=== PATIENT | female | born 1935 | race Caucasian/White ===

== ENCOUNTER 2017-12-02 18:08 | Inpatient (IN) | payer MEDICARE, MEDICAID ==
[2017-12-02] MEDS: Sodium Chloride 0.9% 1,000 ML IV ONE ×2 (18:15→19:15)
--- NOTE | 2017-12-02 18:17 | C.PDOC ---
History Of Present Illness <Jaymie Yeager - Last Filed: 12/02/17 18:52> <JeanaselvinFrantz Munguia - Last Filed: 12/02/17 20:01> LTD DUE TO CLINICAL COND 82-YEAR-OLD FEMALE, PMHX HYPERTENSION, BIBA. PATIENT HAD ONE EPISODE OF NON- BLOODY/NON-BILIOUS VOMITING, INITIAL IMPRESSION SX DUE TO ?BAD FOOD. PER EMS PT WITH WITNESSED SYNCOPAL EPISODE EN ROUTE, VS: SYSTOLIC 110, RATE IN 50s W PROLONGED PAUSES. EKG 81BPM POSS THIRD DEGREE BLOCK (Toy,Jaymie) History Per: EMS, Family History/Exam Limitations: clinical condition Current Symptoms Are (Timing): Still Present <Jaymie Yeager - Last Filed: 12/02/17 18:52> <Frantz Thomas Nilda - Last Filed: 12/02/17 20:01> Time Seen by Provider: 12/02/17 18:12 Past Medical History Reviewed: Historical Data, Nursing Documentation, Vital Signs Family History: States: No Known Family Hx <Jaymie Yeager - Last Filed: 12/02/17 18:52> Vital Signs: Last Vital Signs Temp 97.9 F 12/02/17 18:24 Pulse 47 L 12/02/17 19:10 Resp 17 12/02/17 19:10 BP 100/50 L 12/02/17 19:10 Pulse Ox 98 12/02/17 19:10 Review Of Systems Review Of Systems: ROS cannot be obtained secondary to pt's inabilty to answer questions. 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 DROPPED BEATS) Respiratory: Normal Breath Sounds, No Decreased Breath Sounds, No Accessory Muscle Use Gastrointestinal/Abdominal: Soft, No Tenderness Extremity: Normal ROM, No Deformity, No Swelling Neurological/Psych: Oriented x3, Normal Speech <Jaymie Yeager - Last Filed: 12/02/17 18:52> ED Course And Treatment - Laboratory Results Result Diagrams: 12/02/17 18:37 ECG: Interpreted By Me Interpretation Of ECG: ?3 AVB Rate From EC O2 Sat by Pulse Oximetry: 100 Pulse Ox Interpretation: Normal <Jaymie Yeager - Last Filed: 12/02/17 18:52> - Laboratory Results Result Diagrams: 12/02/17 18:37 12/02/17 18:37 Lab Interpretation: Abnormal Interpretation Of Abnormal: Severe hyperkalemia - Physician Consult Information Physician Contacted: Ruben Munroe Outcome Of Conversation: He evaluated pt in the ED, agrees with ED management and ICU admission. <MarthaFrantz E - Last Filed: 12/02/17 20:01> Progress - Data Reviewed Data Reviewed: Lab, Diagnostic imaging, EKG, Old records - Critical Care Citical Care: Excluding Proc Time Critical Care Time: 90 minutes - Continuity of Care Discussed patient case with:: Patient, Family-HIPPA compliant Discussed pt. case with pmo consultant/specialty: Cardiology <Jaymie Yeager - Last Filed: 12/02/17 18:52> - Interventions Interventions:: Observation, Intravenous fluid - Medications Administered Oral: Other (Kayexelate) Inhaled nebulized: Beta-2 agonist Intravenous: Diuretic, Other (Insulin, D50, Calcium Gluconate, Sodium Bicarb.) - Patient Status Patient status: Partially improved, Critical - Critical Care Citical Care: Excluding Proc Time Critical Care Time: 105 minutes - Continuity of Care Discussed patient case with:: Patient, Family-HIPPA compliant, ED Nurse, On- call PMD-pt unassigned Discussed pt. case with pmo consultant/specialty: Cardiology - Patient Plan Patient Plan: Admission, ICU <MarthaMercedmiko E - Last Filed: 12/02/17 20:01> - Re-Evaluation Re-evaluation Note: 18:08 ATROPINE GIVEN W MOD IMPROVEMENT 12/02/17 18:17 D/W DR MUNROE AWARE OF ER FINDINGS. WILL CONSULT, RECOMMENDS ICU EVAL FOR POSSIBLE TRANSVENOUS PPM EVAL 12/02/17 18:23 PT STATES TAKES METOPROLOL 50 MG DAILY, DENIES POSSIBLE OVERDOSE. WILL DOSE GLUCAGON 12/02/17 18:30 VOMITING, NARD. WILL DOSE REGLAN 12/02/17 18:44 PS FEELS BETTER. NV RESOLVED. DENIES CP, DIZZY. HR 52 ON MONITOR. NARD. 12/02/17 18:52 REPEAT EKG JUNCTIONAL @ 48 APPEARS COMFORTABLE HR 48 SBP 125 (Jaymie Yeager) Disposition - Disposition Disposition Time: 19:00 <Jaymie Yeager - Last Filed: 12/02/17 18:52> Discussed With : Logan Campo Comment: He accepted pt on hospitalist service. Doctor Will See Patient In The: Hospital Counseled Patient/Family Regarding: Studies Performed, Diagnosis - Disposition Disposition Time: 19:58 <Frantz Thomas - Last Filed: 12/02/17 20:01> - Disposition Disposition: HOSPITALIZED Condition: CRITICAL - Clinical Impression Clinical Impression: Heart block, Bradycardia, Syncope, Hyperkalemia, Acute electrocardiography changes Physician Patient Turnover Patient Signed Over To: Frantz Thomas Handoff Comments: FU LABS, DISPO <Jaymie Yeager - Last Filed: 12/02/17 18:52>
[2017-12-02] MEDS ORDERED: Sodium Chloride 0.9% 1,000 ML IV ONE (18:18)
[2017-12-02] MEDS ORDERED: Glucagon Recombinant 1 mg Inj IV STA (18:20)
[2017-12-02] MEDS ORDERED: Glucagon Recombinant 1 mg Inj ONE (18:26)
[2017-12-02 18:44] LABS: BASO # 0.1 K/uL (0.0-0.2); BASO % 0.5 % (0.0-2.0); EOS % 0.2 % (0.0-4.0); HEMOGLOBIN 10.5 g/dL (11.0-16.0); LYMPH # 1.8 K/uL (1.0-4.3); LYMPH % 17.1 % (20.0-40.0); MEAN CELL VOLUME 72.9 fL (81.0-99.0); MEAN CORPUSCULAR HEMOGLOBIN 23.2 pg (27.0-31.0); MEAN CORPUSCULAR HGB CONC 31.8 g/dL (33.0-37.0); MEAN PLATELET VOLUME 8.1 fL (7.2-11.7); MONO # 0.5 K/uL (0.0-0.8); MONO % 4.5 % (0.0-10.0); NEUT # 8.4 K/uL (1.8-7.0); NEUT % 77.7 % (50.0-75.0); RBC 4.52 Mil/uL (3.80-5.20); RED CELL DISTRIBUTION WIDTH 15.8 % (11.5-14.5); WHITE BLOOD COUNT 10.8 K/uL (4.8-10.8)
[2017-12-02 18:52] LABS: PROTHROMBIN TIME 11.2 SECONDS (9.7-12.2)
[2017-12-02 19:12] LABS: ALB/GLOB RATIO 1.2 (1.0-2.1); ALBUMIN 4.2 g/dL (3.5-5.0); ALT/SGPT 161 U/L (9-52); AST/SGOT 177 U/L (14-36); BLOOD UREA NITROGEN 22 mg/dL (7-17); GFR AFRICAN-AMERICAN > 60; GFR NON-AFRICAN AMERICAN 53
[2017-12-02] MEDS ORDERED: Albuterol 0.083% Inhal Sol (2.5 mg/3 mL) UD IH STA ×2 (19:13→19:32)
[2017-12-02] MEDS ORDERED: Calcium Gluconate 4.65 mEq/10 ml Inj IVP STA ×2 (19:14→19:28)
[2017-12-02] MEDS ORDERED: (Novolin R) Insulin Human Regular 100 units/ml vial IV STA (19:14)
[2017-12-02] MEDS ORDERED: Dextrose 50% SYRINGE Inj (50 ml) IVP STA (19:15)
[2017-12-02] MEDS ORDERED: Sod Polystyrene Sulf 15 gm/60 ml Susp PO STA (19:15)
[2017-12-02] MEDS ORDERED: Dextrose 50% VIAL Inj (50 ml) IV ONE (19:17)
[2017-12-02] MEDS ORDERED: Calcium Gluconate 4.65 mEq/10 ml Inj ONE ×2 (19:17→19:31)
[2017-12-02] MEDS ORDERED: (Novolin R) Insulin Human Regular 100 units/ml vial ONE (19:17)
[2017-12-02] MEDS ORDERED: Albuterol 0.083% Inhal Sol (2.5 mg/3 mL) UD ONE ×2 (19:17→19:32)
[2017-12-02] MEDS ORDERED: Sodium Bicarbonate (8.4%) 50 Meq Syringe IVP STA (19:19)
[2017-12-02 19:21] LABS: FREE T4 1.82 ng/dL (0.78-2.19)
[2017-12-02] MEDS ORDERED: Sodium Bicarbonate (8.4%) 50 Meq Syringe ONE (19:26)
[2017-12-02] MEDS ORDERED: Sodium Chloride 0.9% 1,000 ML IV STA (19:33)
[2017-12-02] MEDS ORDERED: Sod Polystyrene Sulf 15 gm/60 ml Susp ONE ×3 (19:42→20:27)
[2017-12-02] MEDS ORDERED: Sod Polystyrene Sulf 15 gm/60 ml Susp PO ONE (20:13)
[2017-12-02] MEDS ORDERED: Sodium Bicarbonate 8.4% 150 MEQ in Dextrose 5% In Water 1,000 ML IV SCH (20:15)
[2017-12-02 20:44] LABS: URINE BACTERIA RARE (<OCC); URINE BILIRUBIN NEGATIVE (NEGATIVE); URINE BLOOD NEGATIVE (NEGATIVE); URINE CLARITY Clear (Clear); URINE COLOR Colorless (YELLOW); URINE GLUCOSE (UA) 1+ mg/dL (Normal); URINE LEUKOCYTE ESTERASE NEG Leu/uL (Negative); URINE PROTEIN NEGATIVE (NEGATIVE); URINE UROBILINOGEN NORMAL mg/dL (0.2-1.0)
--- NOTE | 2017-12-02 21:13 | CP.PCM.HP ---
<Kathleen DumontKirit - Last Filed: 12/02/17 23:14> History of Present Illness - History of Present Illness History of Present Illness: CC: nausea, diarrhea, dizziness HPI: Patient is an 82 y/o F with PMHx of HTN, DMII, HLD who presents today for nausea, diarrhea, and dizziness. Patient was feeling fine today and then after eating lunch became nauseous and had 4 episodes of nonbloody diarrhea. Patient felt light headed with blurry vision and weak and her daughter called 911. Patient also felt like she was unsteady on her feet and needed help to get to the bathroom. Patient has not been sick recently and has had no sick contacts. In the ER patient had one episode of vomiting. In the ER patient says she is feeling much better and says the lightheadedness and nausea have resolved. Patient denies any chest pain, shortness of breath, or abdominal pain. The past few days patient has had decreased appetite, but otherwise has felt normal. Patient has had no weight changes. Patient was recently in the [facility] [place] from Nov 01- November 16 and felt fine while there. PMD: Dr. Grubbs Cardio: Dr. Morales Allergies: NKDA PMHx: HTN, DM, HLD Psurg: hysterectomy 20+ years ago, appendectomy 20+ years ago, R ankle and R arm break 5 years ago with metal placed in arenas arm last colonoscopy about 4 years ago with normal findings Famhx: Father: [facility] at unknown age Social: denies tobacco or drugs, drinks 1 small glass of wine daily (currently not drinking because she gave it up for Lent), lives alone, home health aid comes 6x a week, able to do most ADLs alone Home meds: Sodium Chloride 1 tab po QID, Vit A 1 tab po daily, Janumet Xr 50- 500mg 1 tab po BID, Omeprazole 1 tab po daily, Amlodipine/ Valsartan 5-320mg 1 po daily, Atorvastatin 1 tab po daily, Metoprolol 1 tab po daily, ASA 81mg po daily Present on Admission - Present on Admission Any Indicators Present on Admission: No History of DVT/PE: No History of Uncontrolled Diabetes: No Urinary Catheter: No Decubitus Ulcer Present: No Review of Systems - Constitutional Constitutional: Weakness. absent: Chills, Fever, Weight Loss - EENT Eyes: Blurred Vision Nose/Mouth/Throat: absent: Sore Throat - Cardiovascular Cardiovascular: absent: Chest Pain, Dyspnea, Leg Edema, Palpitations - Respiratory Respiratory: absent: Cough, Wheezing, Chest Congestion - Gastrointestinal Gastrointestinal: Bloating, Diarrhea, Nausea, Vomiting. absent: Abdominal Pain , Hematochezia, Melena - Musculoskeletal Musculoskeletal: absent: Numbness, Tingling - Integumentary Integumentary: absent: Rash - Neurological Neurological: absent: Abnormal Speech Past Patient History - Past Social History Smoking Status: Never Smoked - CARDIAC Hx Hypercholesterolemia: Yes Hx Hypertension: Yes - GASTROINTESTINAL Hx Gastroesophageal Reflux: Yes - PSYCHIATRIC Hx Substance Use: No - SURGICAL HISTORY Hx Appendectomy: Yes Hx Hysterectomy: Yes - ANESTHESIA Hx Anesthesia: Yes Hx Anesthesia Reactions: No Meds Allergies/Adverse Reactions: Allergies Allergy/AdvReac Type Severity Reaction Status Date / Time No Known Allergies Allergy Verified 12/02/17 18:18 Physical Exam - Constitutional Appears: Non-toxic, No Acute Distress - Head Exam Head Exam: ATRAUMATIC, NORMAL INSPECTION, NORMOCEPHALIC - Eye Exam Eye Exam: EOMI, Normal appearance - ENT Exam ENT Exam: Mucous Membranes Dry - Respiratory Exam Respiratory Exam: Clear to Auscultation Bilateral, NORMAL BREATHING PATTERN - Cardiovascular Exam Cardiovascular Exam: Bradycardia, REGULAR RHYTHM, +S1, +S2 - GI/Abdominal Exam GI & Abdominal Exam: Distended, Normal Bowel Sounds, Soft. absent: Tenderness - Extremities Exam Extremities exam: Positive for: normal inspection. Negative for: pedal edema, tenderness - Neurological Exam Neurological exam: Alert, Oriented x3 - Psychiatric Exam Psychiatric exam: Depressed ( 4 months ago), Normal Affect - Skin Skin Exam: Intact, Normal Color, Warm Results - Vital Signs Recent Vital Signs: Last Vital Signs Temp 97.6 F 12/02/17 20:06 Pulse 52 L 12/02/17 20:06 Resp 18 12/02/17 20:06 BP 140/48 L 12/02/17 20:06 Pulse Ox 97 12/02/17 20:06 - Labs Result Diagrams: 12/02/17 18:37 12/02/17 18:37 Labs: Laboratory Results - last 24 hr 12/02/17 12/02/17 12/02/17 18:11 18:37 18:37 WBC 10.8 RBC 4.52 Hgb 10.5 L Hct 33.0 L MCV 72.9 L MCH 23.2 L MCHC 31.8 L RDW 15.8 H Plt Count 252 MPV 8.1 Neut % (Auto) 77.7 H Lymph % (Auto) 17.1 L [place] % (Auto) 4.5 Eos % (Auto) 0.2 Baso % (Auto) 0.5 Neut # (Auto) 8.4 H Lymph # (Auto) 1.8 [place] # (Auto) 0.5 Eos # (Auto) 0.0 Baso # (Auto) 0.1 PT 11.2 INR 1.0 Sodium Potassium Chloride Carbon Dioxide Anion Gap BUN Creatinine Est GFR ( Amer) Est GFR (Non-Af Amer) POC Glucose (mg/dL) 167 H Random Glucose Calcium Total Bilirubin AST ALT Alkaline Phosphatase Troponin I NT-Pro-B Natriuret Pep Total Protein Albumin Globulin Albumin/Globulin Ratio Free T4 TSH 3rd Generation Urine Color Urine Clarity Urine pH Ur Specific [place] Urine Protein Urine Glucose (UA) Urine Ketones Urine Blood Urine Nitrate Urine Bilirubin Urine Urobilinogen Ur Leukocyte Esterase Urine WBC (Auto) Urine RBC (Auto) Urine Bacteria 12/02/17 12/02/17 12/02/17 18:37 18:37 20:28 WBC RBC Hgb Hct MCV MCH MCHC RDW Plt Count MPV Neut % (Auto) Lymph % (Auto) [place] % (Auto) Eos % (Auto) Baso % (Auto) Neut # (Auto) Lymph # (Auto) [place] # (Auto) Eos # (Auto) Baso # (Auto) PT INR Sodium 138 Potassium 8.3 H* Chloride 97 L Carbon Dioxide 31 H Anion Gap 19 BUN 22 H Creatinine 1.0 Est GFR ( Amer) > 60 Est GFR (Non-Af Amer) 53 POC Glucose (mg/dL) Random Glucose 167 H Calcium 9.0 Total Bilirubin 0.6 AST 177 H ALT 161 H Alkaline Phosphatase 89 Troponin I < 0.0120 NT-Pro-B Natriuret Pep 696 Total Protein 7.6 Albumin 4.2 Globulin 3.4 Albumin/Globulin Ratio 1.2 Free T4 1.82 TSH 3rd Generation 2.19 Urine Color Urine Clarity Urine pH Ur Specific [place] Urine Protein Urine Glucose (UA) Urine Ketones Urine Blood Urine Nitrate Urine Bilirubin Urine Urobilinogen Ur Leukocyte Esterase Urine WBC (Auto) Urine RBC (Auto) Urine Bacteria 12/02/17 20:28 WBC RBC Hgb Hct MCV MCH MCHC RDW Plt Count MPV Neut % (Auto) Lymph % (Auto) [place] % (Auto) Eos % (Auto) Baso % (Auto) Neut # (Auto) Lymph # (Auto) [place] # (Auto) Eos # (Auto) Baso # (Auto) PT INR Sodium Potassium Chloride Carbon Dioxide Anion Gap BUN Creatinine Est GFR ( Amer) Est GFR (Non-Af Amer) POC Glucose (mg/dL) Random Glucose Calcium Total Bilirubin AST ALT Alkaline Phosphatase Troponin I NT-Pro-B Natriuret Pep Total Protein Albumin Globulin Albumin/Globulin Ratio Free T4 TSH 3rd Generation Urine Color Colorless Urine Clarity Clear Urine pH 8.0 Ur Specific [place] 1.005 Urine Protein Negative Urine Glucose (UA) 1+ Urine Ketones Negative Urine Blood Negative Urine Nitrate Negative Urine Bilirubin Negative Urine Urobilinogen Normal Ur Leukocyte Esterase Neg Urine WBC (Auto) 1 Urine RBC (Auto) 3 Urine Bacteria Rare Assessment & Plan - Assessment and Plan (Free Text) Assessment: 1. Hyperkalemia -Admit to ICU -Potassium 8.3 on admission -Patient given, calcium gluconate, sodium bicarb, lasix, albuterol, kayexalate, and insulin in ED - continue IV bicarb -f/u K+ 2. Bradycardia -Cardiology consulted, Dr. Munroe, help appreciated -patient took B angus this am, Glucagon given in ED -low dose dopamine -Troponin I negative, f/u ROMIs x 2 -f/u ECHO -f/u urine culture, stool culture, fecal leuk, RPR, TSH 3. HTN -hold FILI/ARB secondary to hyperkalemia -continue to monitor 4. DMII -NPO -accuchecks q6hrs -ISS low dose 5. HLD -f/u lipid panel 6. Prophylaxis -Heparin 5000 u sc q8h <Logan Campo - Last Filed: 12/03/17 06:26> Results - Vital Signs Recent Vital Signs: Last Vital Signs Temp 98.6 F 12/03/17 04:00 Pulse 69 12/03/17 06:11 Resp 22 12/03/17 06:11 BP 141/42 L 12/03/17 06:12 Pulse Ox 97 12/03/17 06:11 - Labs Result Diagrams: 12/02/17 18:37 03/18/18 23:33 Labs: Laboratory Results - last 24 hr 12/02/17 12/02/17 12/02/17 18:11 18:37 18:37 WBC 10.8 RBC 4.52 Hgb 10.5 L Hct 33.0 L MCV 72.9 L MCH 23.2 L MCHC 31.8 L RDW 15.8 H Plt Count 252 MPV 8.1 Neut % (Auto) 77.7 H Lymph % (Auto) 17.1 L [place] % (Auto) 4.5 Eos % (Auto) 0.2 Baso % (Auto) 0.5 Neut # (Auto) 8.4 H Lymph # (Auto) 1.8 [place] # (Auto) 0.5 Eos # (Auto) 0.0 Baso # (Auto) 0.1 PT 11.2 INR 1.0 Sodium Potassium Chloride Carbon Dioxide Anion Gap BUN Creatinine Est GFR ( Amer) Est GFR (Non-Af Amer) POC Glucose (mg/dL) 167 H Random Glucose Calcium Phosphorus Magnesium Total Bilirubin AST ALT Alkaline Phosphatase Total Creatine Kinase CK-MB (Mass) Troponin I NT-Pro-B Natriuret Pep Total Protein Albumin Globulin Albumin/Globulin Ratio Free T4 TSH 3rd Generation Urine Color Urine Clarity Urine pH Ur Specific [place] Urine Protein Urine Glucose (UA) Urine Ketones Urine Blood Urine Nitrate Urine Bilirubin Urine Urobilinogen Ur Leukocyte Esterase Urine WBC (Auto) Urine RBC (Auto) Urine Bacteria Urine Opiates Screen Urine Methadone Screen Ur Barbiturates Screen Ur Phencyclidine Scrn Ur Amphetamines Screen U Benzodiazepines Scrn U Oth Cocaine Metabols U Cannabinoids Screen 12/02/17 12/02/17 12/02/17 18:37 18:37 20:28 WBC RBC Hgb Hct MCV MCH MCHC RDW Plt Count MPV Neut % (Auto) Lymph % (Auto) [place] % (Auto) Eos % (Auto) Baso % (Auto) Neut # (Auto) Lymph # (Auto) [place] # (Auto) Eos # (Auto) Baso # (Auto) PT INR Sodium 138 Potassium 8.3 H* Chloride 97 L Carbon Dioxide 31 H Anion Gap 19 BUN 22 H Creatinine 1.0 Est GFR ( Amer) > 60 Est GFR (Non-Af Amer) 53 POC Glucose (mg/dL) Random Glucose 167 H Calcium 9.0 Phosphorus Magnesium Total Bilirubin 0.6 AST 177 H ALT 161 H Alkaline Phosphatase 89 Total Creatine Kinase CK-MB (Mass) Troponin I < 0.0120 NT-Pro-B Natriuret Pep 696 Total Protein 7.6 Albumin 4.2 Globulin 3.4 Albumin/Globulin Ratio 1.2 Free T4 1.82 TSH 3rd Generation 2.19 Urine Color Urine Clarity Urine pH Ur Specific [place] Urine Protein Urine Glucose (UA) Urine Ketones Urine Blood Urine Nitrate Urine Bilirubin Urine Urobilinogen Ur Leukocyte Esterase Urine WBC (Auto) Urine RBC (Auto) Urine Bacteria Urine Opiates Screen Urine Methadone Screen Ur Barbiturates Screen Ur Phencyclidine Scrn Ur Amphetamines Screen U Benzodiazepines Scrn U Oth Cocaine Metabols U Cannabinoids Screen 12/02/17 12/02/17 12/02/17 20:28 23:19 23:33 WBC RBC Hgb Hct MCV MCH MCHC RDW Plt Count MPV Neut % (Auto) Lymph % (Auto) [place] % (Auto) Eos % (Auto) Baso % (Auto) Neut # (Auto) Lymph # (Auto) [place] # (Auto) Eos # (Auto) Baso # (Auto) PT INR Sodium Potassium Chloride Carbon Dioxide Anion Gap BUN Creatinine Est GFR ( Amer) Est GFR (Non-Af Amer) POC Glucose (mg/dL) 194 H Random Glucose Calcium Phosphorus Magnesium Total Bilirubin AST ALT Alkaline Phosphatase Total Creatine Kinase CK-MB (Mass) Troponin I NT-Pro-B Natriuret Pep Total Protein Albumin Globulin Albumin/Globulin Ratio Free T4 TSH 3rd Generation Urine Color Colorless Urine Clarity Clear Urine pH 8.0 Ur Specific [place] 1.005 Urine Protein Negative Urine Glucose (UA) 1+ Urine Ketones Negative Urine Blood Negative Urine Nitrate Negative Urine Bilirubin Negative Urine Urobilinogen Normal Ur Leukocyte Esterase Neg Urine WBC (Auto) 1 Urine RBC (Auto) 3 Urine Bacteria Rare Urine Opiates Screen Negative Urine Methadone Screen Negative Ur Barbiturates Screen Negative Ur Phencyclidine Scrn Negative Ur Amphetamines Screen Negative U Benzodiazepines Scrn Negative U Oth Cocaine Metabols Negative U Cannabinoids Screen Negative 12/02/17 12/03/17 12/03/17 23:33 00:22 05:01 WBC RBC Hgb Hct MCV MCH MCHC RDW Plt Count MPV Neut % (Auto) Lymph % (Auto) [place] % (Auto) Eos % (Auto) Baso % (Auto) Neut # (Auto) Lymph # (Auto) [place] # (Auto) Eos # (Auto) Baso # (Auto) PT INR Sodium 142 Potassium 4.5 Chloride 97 L Carbon Dioxide 34 H Anion Gap 16 BUN 21 H Creatinine 0.9 Est GFR ( Amer) > 60 Est GFR (Non-Af Amer) 60 POC Glucose (mg/dL) 254 H Random Glucose 210 H Calcium 9.5 Phosphorus 3.1 Magnesium 2.4 H Total Bilirubin 0.5 AST 335 H D ALT 295 H D Alkaline Phosphatase 87 Total Creatine Kinase 89 CK-MB (Mass) 1.02 Troponin I < 0.0120 NT-Pro-B Natriuret Pep Total Protein 7.3 Albumin 4.2 Globulin 3.1 Albumin/Globulin Ratio 1.4 Free T4 TSH 3rd Generation 1.49 Urine Color Urine Clarity Urine pH Ur Specific [place] Urine Protein Urine Glucose (UA) Urine Ketones Urine Blood Urine Nitrate Urine Bilirubin Urine Urobilinogen Ur Leukocyte Esterase Urine WBC (Auto) Urine RBC (Auto) Urine Bacteria Urine Opiates Screen Urine Methadone Screen Ur Barbiturates Screen Ur Phencyclidine Scrn Ur Amphetamines Screen U Benzodiazepines Scrn U Oth Cocaine Metabols U Cannabinoids Screen Assessment & Plan - Date & Time Date: 12/03/17 (I have seen and examined the patient. I agree with the findings and plan of care as documented by Dr. Dumont. Patient with hyperkalemia. Bradycardia. Consult to Dr. Munroe. Admit to ICU for further management. Received calcium gluconate, Lasix, Insulin, nebs, and Kayexylate in ED. Monitor for acute changes.) Time: 06:24 Attending/Attestation - Attestation I have personally seen and examined this patient.: Yes I have fully participated in the care of the patient.: Yes I have reviewed all pertinent clinical information: Yes
[2017-12-02] MEDS ORDERED: DOPamine 400mg/250ml D5W 400 MG/250 ML BAG IV PRN (21:57)
--- NOTE | 2017-12-02 22:04 | CP.PCM.CON ---
History of Present Illness - History of Present Illness History of Present Illness: 82 y/o F with PMHx of HTN, DMII, HLD presents to [facility] with c/o nausea /vomitting and diarrhea associated with dizziness. D episodes of nonbloody Diarrhea described as loose. (+)dizziness.(+) recent travel [facility] [place], no sick contact (-) CP, SOB, abdominal pain. Review of Systems - Review of Systems Review of Systems: see HPI - Gastrointestinal Gastrointestinal: Diarrhea, Nausea, Vomiting. absent: Abdominal Pain Past Patient History - Past Social History Smoking Status: Never Smoked - CARDIAC Hx Hypercholesterolemia: Yes Hx Hypertension: Yes - MUSCULOSKELETAL/RHEUMATOLOGICAL Hx Falls: Yes - GASTROINTESTINAL Hx Gastroesophageal Reflux: Yes - PSYCHIATRIC Hx Substance Use: No - SURGICAL HISTORY Hx Appendectomy: Yes Hx Hysterectomy: Yes - ANESTHESIA Hx Anesthesia: Yes Hx Anesthesia Reactions: No Meds Allergies/Adverse Reactions: Allergies Allergy/AdvReac Type Severity Reaction Status Date / Time No Known Allergies Allergy Verified 12/02/17 18:18 - Medications Medications: Current Medications Sodium Bicarbonate 75 meq/ (Sodium Chloride) 1,075 mls @ 100 mls/hr IV .[id number] [facility] Last Admin: 12/02/17 20:45 Dose: 100 mls/hr Dopamine HCl/Dextrose (Dopamine 400mg/250ml D5w) 400 mg in 250 mls @ 4.559 mls/ hr IV .Q24H PRN; Protocol; 2 MCG/KG/MIN PRN Reason: TITRATE PER MD ORDER Physical Exam - Head Exam Head Exam: ATRAUMATIC, NORMAL INSPECTION, NORMOCEPHALIC - Eye Exam Eye Exam: Normal appearance Pupil Exam: PERRL - ENT Exam ENT Exam: Mucous Membranes Moist - Neck Exam Neck exam: Positive for: Normal Inspection - Respiratory Exam Respiratory Exam: NORMAL BREATHING PATTERN - Cardiovascular Exam Cardiovascular Exam: Bradycardia, +S1, +S2 - GI/Abdominal Exam GI & Abdominal Exam: Normal Bowel Sounds, Soft. absent: Tenderness - Extremities Exam Extremities exam: Positive for: normal inspection - Neurological Exam Neurological exam: Alert, Normal Gait, Oriented x3 - Skin Skin Exam: Normal Color Results - Vital Signs Recent Vital Signs: Last Vital Signs Temp 97.6 F 12/02/17 20:06 Pulse 51 L 12/02/17 21:06 Resp 15 12/02/17 21:06 BP 120/47 L 12/02/17 21:06 Pulse Ox 96 12/02/17 21:06 - Labs Result Diagrams: 12/02/17 18:37 12/02/17 18:37 Labs: Laboratory Results - last 24 hr 12/02/17 12/02/17 12/02/17 18:11 18:37 18:37 WBC 10.8 RBC 4.52 Hgb 10.5 L Hct 33.0 L MCV 72.9 L MCH 23.2 L MCHC 31.8 L RDW 15.8 H Plt Count 252 MPV 8.1 Neut % (Auto) 77.7 H Lymph % (Auto) 17.1 L [place] % (Auto) 4.5 Eos % (Auto) 0.2 Baso % (Auto) 0.5 Neut # (Auto) 8.4 H Lymph # (Auto) 1.8 [place] # (Auto) 0.5 Eos # (Auto) 0.0 Baso # (Auto) 0.1 PT 11.2 INR 1.0 Sodium Potassium Chloride Carbon Dioxide Anion Gap BUN Creatinine Est GFR ( Amer) Est GFR (Non-Af Amer) POC Glucose (mg/dL) 167 H Random Glucose Calcium Total Bilirubin AST ALT Alkaline Phosphatase Troponin I NT-Pro-B Natriuret Pep Total Protein Albumin Globulin Albumin/Globulin Ratio Free T4 TSH 3rd Generation Urine Color Urine Clarity Urine pH Ur Specific [place] Urine Protein Urine Glucose (UA) Urine Ketones Urine Blood Urine Nitrate Urine Bilirubin Urine Urobilinogen Ur Leukocyte Esterase Urine WBC (Auto) Urine RBC (Auto) Urine Bacteria 12/02/17 12/02/17 12/02/17 18:37 18:37 20:28 WBC RBC Hgb Hct MCV MCH MCHC RDW Plt Count MPV Neut % (Auto) Lymph % (Auto) [place] % (Auto) Eos % (Auto) Baso % (Auto) Neut # (Auto) Lymph # (Auto) [place] # (Auto) Eos # (Auto) Baso # (Auto) PT INR Sodium 138 Potassium 8.3 H* Chloride 97 L Carbon Dioxide 31 H Anion Gap 19 BUN 22 H Creatinine 1.0 Est GFR ( Amer) > 60 Est GFR (Non-Af Amer) 53 POC Glucose (mg/dL) Random Glucose 167 H Calcium 9.0 Total Bilirubin 0.6 AST 177 H ALT 161 H Alkaline Phosphatase 89 Troponin I < 0.0120 NT-Pro-B Natriuret Pep 696 Total Protein 7.6 Albumin 4.2 Globulin 3.4 Albumin/Globulin Ratio 1.2 Free T4 1.82 TSH 3rd Generation 2.19 Urine Color Urine Clarity Urine pH Ur Specific [place] Urine Protein Urine Glucose (UA) Urine Ketones Urine Blood Urine Nitrate Urine Bilirubin Urine Urobilinogen Ur Leukocyte Esterase Urine WBC (Auto) Urine RBC (Auto) Urine Bacteria 12/02/17 20:28 WBC RBC Hgb Hct MCV MCH MCHC RDW Plt Count MPV Neut % (Auto) Lymph % (Auto) [place] % (Auto) Eos % (Auto) Baso % (Auto) Neut # (Auto) Lymph # (Auto) [place] # (Auto) Eos # (Auto) Baso # (Auto) PT INR Sodium Potassium Chloride Carbon Dioxide Anion Gap BUN Creatinine Est GFR ( Amer) Est GFR (Non-Af Amer) POC Glucose (mg/dL) Random Glucose Calcium Total Bilirubin AST ALT Alkaline Phosphatase Troponin I NT-Pro-B Natriuret Pep Total Protein Albumin Globulin Albumin/Globulin Ratio Free T4 TSH 3rd Generation Urine Color Colorless Urine Clarity Clear Urine pH 8.0 Ur Specific [place] 1.005 Urine Protein Negative Urine Glucose (UA) 1+ Urine Ketones Negative Urine Blood Negative Urine Nitrate Negative Urine Bilirubin Negative Urine Urobilinogen Normal Ur Leukocyte Esterase Neg Urine WBC (Auto) 1 Urine RBC (Auto) 3 Urine Bacteria Rare Assessment & Plan - Assessment and Plan (Free Text) Assessment: -Bradycardia: EKG does not revealed PEaked T waves and QRS not prologed compared to a potassium of 8.4. Patient remains hemodynamically stable, check RPR and obtain cardiology eval, patient's last B-angus in AM (glucagon given in ER 3mg), start low dose dopamine, if indicated would consider Transvenous PPM placement, continue IV bcarb ggt with oral kayexelat, recheck potassium, suspect 3rd degree block -HTN: monitor BP, hold ACEI 2nd hyperpotassemia -DM-II: NPO, BGM q6hrs, ISS lispro -HLD: NPO except meds, check lipids -DVT ppx lovenox -PUD ppx not indicated -check lactic, amylase, lipase and GI eval, check stool for fecal WBC and stool culture Patient will benefit from ICU level care for first 24 hours, and possible PPM placement in AM. -continue to monitor - Date & Time Date: 12/02/17 Time: 22:11
--- NOTE | 2017-12-02 22:42 | CP.PCM.CON ---
History of Present Illness - History of Present Illness History of Present Illness: 82 F with hx of DM, HTN and hyperlipidemia admitted for Hyperkalemia and Junctional bradycardia Denies chest pain and dyspnea Patient received Calcium gluconate and Kexalate in ER HR 40s BP stable however dropped to SBP 100 now on low dose Dapamine AST and ALT elevated EKG changes will likely resolve with K correction. Otherwise may need PPM Ischemia and Infectious work up. Check TSH Check ECHO HPI: Patient is an 82 y/o F with PMHx of HTN, DMII, HLD who presents today for nausea, diarrhea, and dizziness. Patient was feeling fine today and then after eating lunch became nauseous and had 4 episodes of nonbloody diarrhea. Patient felt light headed with blurry vision and weak and her daughter called 911. Patient also felt like she was unsteady on her feet and needed help to get to the bathroom. Patient has not been sick recently and has had no sick contacts. In the ER patient had one episode of vomiting. In the ER patient says she is feeling much better and says the lightheadedness and nausea have resolved. Patient denies any chest pain, shortness of breath, or abdominal pain. The past few days patient has had decreased appetite, but otherwise has felt normal. Patient has had no weight changes. Patient was recently in the [facility] from Nov 01- November 16 and felt fine while there. PMD: Dr. Grubbs Cardio: Dr. Morales Allergies: NKDA PMHx: HTN, DM, HLD Psurg: hysterectomy 20+ years ago, appendectomy 20+ years ago, R ankle and R arm break 5 years ago with metal placed in arenas arm last colonoscopy about 4 years ago with normal findings Famhx: Father: [place] at unknown age Social: denies tobacco or drugs, drinks 1 small glass of wine daily (currently not drinking because she gave it up for Lent), lives alone, home health aid comes 6x a week, able to do most ADLs alone Home meds: Sodium Chloride 1 tab po QID, Vit A 1 tab po daily, Janumet Xr 50- 500mg 1 tab po BID, Omeprazole 1 tab po daily, Amlodipine/ Valsartan 5-320mg 1 po daily, Atorvastatin 1 tab po daily, Metoprolol 1 tab po daily, ASA 81mg po daily Review of Systems - Constitutional Constitutional: Weakness. absent: Chills, Fever, Weight Loss - EENT Eyes: Blurred Vision Nose/Mouth/Throat: absent: Sore Throat - Cardiovascular Cardiovascular: absent: Chest Pain, Dyspnea, Leg Edema, Palpitations - Respiratory Respiratory: absent: Cough, Wheezing, Chest Congestion - Gastrointestinal Gastrointestinal: Bloating, Diarrhea, Nausea, Vomiting. absent: Abdominal Pain , Hematochezia, Melena - Musculoskeletal Musculoskeletal: absent: Numbness, Tingling - Integumentary Integumentary: absent: Rash - Neurological Neurological: absent: Abnormal Speech Physical Exam - Constitutional Appears: Non-toxic, No Acute Distress - Head Exam Head Exam: ATRAUMATIC, NORMAL INSPECTION, NORMOCEPHALIC - Eye Exam Eye Exam: EOMI, Normal appearance - ENT Exam ENT Exam: Mucous Membranes Dry - Respiratory Exam Respiratory Exam: Clear to Auscultation Bilateral, NORMAL BREATHING PATTERN - Cardiovascular Exam Cardiovascular Exam: Bradycardia, REGULAR RHYTHM, +S1, +S2 - GI/Abdominal Exam GI & Abdominal Exam: Distended, Normal Bowel Sounds, Soft. absent: Tenderness - Extremities Exam Extremities exam: Positive for: normal inspection. Negative for: pedal edema, tenderness - Neurological Exam Neurological exam: Alert, Oriented x3 - Psychiatric Exam Psychiatric exam: Depressed ( 4 months ago), Normal Affect - Skin Skin Exam: Intact, Normal Color, Warm Past Patient History - Past Medical History & Family History Past Medical History?: Yes - Past Social History Smoking Status: Never Smoked - CARDIAC Hx Hypercholesterolemia: Yes Hx Hypertension: Yes - PULMONARY Hx Respiratory Disorders: No - NEUROLOGICAL Hx Neurological Disorder: No - HEENT Hx Cataracts: Yes - RENAL Hx Chronic Kidney Disease: No - ENDOCRINE/METABOLIC Hx Diabetes Mellitus Type 2: Yes - HEMATOLOGICAL/ONCOLOGICAL Hx Blood Disorders: No - INTEGUMENTARY Hx Dermatological Problems: No - MUSCULOSKELETAL/RHEUMATOLOGICAL Hx Falls: Yes - GASTROINTESTINAL Hx Gastroesophageal Reflux: Yes - GENITOURINARY/GYNECOLOGICAL Hx Genitourinary Disorders: No - PSYCHIATRIC Hx Substance Use: No - SURGICAL HISTORY Hx Appendectomy: Yes Hx Hysterectomy: Yes - ANESTHESIA Hx Anesthesia: Yes Hx Anesthesia Reactions: No Meds Home Medications: Home Medication List Medication Instructions Recorded Confirmed Type Atorvastatin [Lipitor] 1 tab PO DAILY #30 tab 12/05/17 Rx Losartan [Cozaar] 100 mg PO DAILY #30 tab 12/05/17 Rx amLODIPine [Norvasc] 5 mg PO DAILY #30 tab 12/05/17 Rx Allergies/Adverse Reactions: Allergies Allergy/AdvReac Type Severity Reaction Status Date / Time No Known Allergies Allergy Verified 12/02/17 18:18 - Medications Medications: Current Medications Dopamine HCl/Dextrose (Dopamine 400mg/250ml D5w) 400 mg in 250 mls @ 4.559 mls/ hr IV .Q24H PRN; Protocol; 2 MCG/KG/MIN PRN Reason: TITRATE PER MD ORDER Last Admin: 12/02/17 22:11 Dose: 2 mcg/kg/min, 4.559 mls/hr Sodium Bicarbonate 75 meq/ (Dextrose) 575 mls @ 100 mls/hr IV .Q5H45M MADHAVI Results - Vital Signs Recent Vital Signs: Last Vital Signs Temp 97.6 F 12/02/17 20:06 Pulse 48 L 12/02/17 22:11 Resp 17 12/02/17 22:11 BP 130/39 L 12/02/17 22:11 Pulse Ox 97 12/02/17 22:11 - Labs Result Diagrams: 12/05/17 06:24 12/05/17 06:24 Labs: Laboratory Results - last 24 hr 12/02/17 12/02/17 12/02/17 18:11 18:37 18:37 WBC 10.8 RBC 4.52 Hgb 10.5 L Hct 33.0 L MCV 72.9 L MCH 23.2 L MCHC 31.8 L RDW 15.8 H Plt Count 252 MPV 8.1 Neut % (Auto) 77.7 H Lymph % (Auto) 17.1 L [place] % (Auto) 4.5 Eos % (Auto) 0.2 Baso % (Auto) 0.5 Neut # (Auto) 8.4 H Lymph # (Auto) 1.8 [place] # (Auto) 0.5 Eos # (Auto) 0.0 Baso # (Auto) 0.1 PT 11.2 INR 1.0 Sodium Potassium Chloride Carbon Dioxide Anion Gap BUN Creatinine Est GFR ( Amer) Est GFR (Non-Af Amer) POC Glucose (mg/dL) 167 H Random Glucose Calcium Total Bilirubin AST ALT Alkaline Phosphatase Troponin I NT-Pro-B Natriuret Pep Total Protein Albumin Globulin Albumin/Globulin Ratio Free T4 TSH 3rd Generation Urine Color Urine Clarity Urine pH Ur Specific [place] Urine Protein Urine Glucose (UA) Urine Ketones Urine Blood Urine Nitrate Urine Bilirubin Urine Urobilinogen Ur Leukocyte Esterase Urine WBC (Auto) Urine RBC (Auto) Urine Bacteria 12/02/17 12/02/17 12/02/17 18:37 18:37 20:28 WBC RBC Hgb Hct MCV MCH MCHC RDW Plt Count MPV Neut % (Auto) Lymph % (Auto) [place] % (Auto) Eos % (Auto) Baso % (Auto) Neut # (Auto) Lymph # (Auto) [place] # (Auto) Eos # (Auto) Baso # (Auto) PT INR Sodium 138 Potassium 8.3 H* Chloride 97 L Carbon Dioxide 31 H Anion Gap 19 BUN 22 H Creatinine 1.0 Est GFR ( Amer) > 60 Est GFR (Non-Af Amer) 53 POC Glucose (mg/dL) Random Glucose 167 H Calcium 9.0 Total Bilirubin 0.6 AST 177 H ALT 161 H Alkaline Phosphatase 89 Troponin I < 0.0120 NT-Pro-B Natriuret Pep 696 Total Protein 7.6 Albumin 4.2 Globulin 3.4 Albumin/Globulin Ratio 1.2 Free T4 1.82 TSH 3rd Generation 2.19 Urine Color Urine Clarity Urine pH Ur Specific [place] Urine Protein Urine Glucose (UA) Urine Ketones Urine Blood Urine Nitrate Urine Bilirubin Urine Urobilinogen Ur Leukocyte Esterase Urine WBC (Auto) Urine RBC (Auto) Urine Bacteria 12/02/17 20:28 WBC RBC Hgb Hct MCV MCH MCHC RDW Plt Count MPV Neut % (Auto) Lymph % (Auto) [place] % (Auto) Eos % (Auto) Baso % (Auto) Neut # (Auto) Lymph # (Auto) [place] # (Auto) Eos # (Auto) Baso # (Auto) PT INR Sodium Potassium Chloride Carbon Dioxide Anion Gap BUN Creatinine Est GFR ( Amer) Est GFR (Non-Af Amer) POC Glucose (mg/dL) Random Glucose Calcium Total Bilirubin AST ALT Alkaline Phosphatase Troponin I NT-Pro-B Natriuret Pep Total Protein Albumin Globulin Albumin/Globulin Ratio Free T4 TSH 3rd Generation Urine Color Colorless Urine Clarity Clear Urine pH 8.0 Ur Specific [place] 1.005 Urine Protein Negative Urine Glucose (UA) 1+ Urine Ketones Negative Urine Blood Negative Urine Nitrate Negative Urine Bilirubin Negative Urine Urobilinogen Normal Ur Leukocyte Esterase Neg Urine WBC (Auto) 1 Urine RBC (Auto) 3 Urine Bacteria Rare Assessment & Plan - Assessment and Plan (Free Text) Assessment: 82 F with hx of DM, HTN and hyperlipidemia admitted for Hyperkalemia and Junctional bradycardia Denies chest pain and dyspnea Patient received Calcium gluconate and Kexalate in ER HR 40s BP stable however dropped to SBP 100 now on low dose Dapamine AST and ALT elevated EKG changes will likely resolve with K correction. Otherwise may need PPM Ischemia and Infectious work up. Check TSH Check ECHO
[2017-12-02] MEDS: SODIUM BICARBONATE IV SCH (23:29)
[2017-12-02] MEDS: WATER IV SCH (23:29)
[2017-12-02] MEDS: DEXTROSE 5% IV SCH (23:29)
[2017-12-02] MEDS: (Novolog) Insulin Aspart, Recombinant 100 u/ml 10 ml vial SC SCH ×2 (23:48→23:51)
[2017-12-02 23:51] LABS: ALB/GLOB RATIO 1.4 (1.0-2.1); ALBUMIN 4.2 g/dL (3.5-5.0); ALT/SGPT 295 U/L (9-52); AST/SGOT 335 U/L (14-36); BLOOD UREA NITROGEN 21 mg/dL (7-17); CALCIUM 9.5 mg/dl (8.6-10.4); GFR AFRICAN-AMERICAN > 60; GFR NON-AFRICAN AMERICAN 60
[2017-12-02 23:52] LABS: BARBITURATES, UR NEGATIVE (NEGATIVE); BENZODIAZEPINES, UR NEGATIVE (NEGATIVE); OPIATES, UR NEGATIVE (NEGATIVE); PHENCYCLIDINE, UR NEGATIVE (NEGATIVE)
[2017-12-03 00:48] LABS: CK-MB 1.02 ng/mL (0.0-3.38)
[2017-12-03] MEDS: DEXTROSE 5% IV SCH (04:30)
[2017-12-03] MEDS: WATER IV SCH (04:30)
[2017-12-03] MEDS: SODIUM BICARBONATE IV SCH (04:30)
[2017-12-03] MEDS: (Novolog) Insulin Aspart, Recombinant 100 u/ml 10 ml vial SC SCH ×5 (05:10→22:07)
[2017-12-03 06:55] LABS: CK-MB 0.63 ng/mL (0.0-3.38)
[2017-12-03 07:51] LABS: BASO % 0.3 % (0.0-2.0); EOS % 0.1 % (0.0-4.0); HEMOGLOBIN 9.4 g/dL (11.0-16.0); LYMPH # 0.9 K/uL (1.0-4.3); LYMPH % 12.2 % (20.0-40.0); MEAN CELL VOLUME 72.9 fL (81.0-99.0); MEAN CORPUSCULAR HEMOGLOBIN 23.8 pg (27.0-31.0); MEAN CORPUSCULAR HGB CONC 32.6 g/dL (33.0-37.0); MEAN PLATELET VOLUME 8.8 fL (7.2-11.7); MONO # 0.7 K/uL (0.0-0.8); MONO % 9.4 % (0.0-10.0); NEUT # 5.9 K/uL (1.8-7.0); RBC 3.96 Mil/uL (3.80-5.20); RED CELL DISTRIBUTION WIDTH 16.3 % (11.5-14.5); WHITE BLOOD COUNT 7.6 K/uL (4.8-10.8)
[2017-12-03] MEDS ORDERED: Vitamins A & D Oint UD Foilpak TOP PRN (08:15)
[2017-12-03 08:16] LABS: ALB/GLOB RATIO 1.3 (1.0-2.1); ALT/SGPT 260 U/L (9-52); AST/SGOT 220 U/L (14-36); BLOOD UREA NITROGEN 17 mg/dL (7-17); GFR AFRICAN-AMERICAN > 60; GFR NON-AFRICAN AMERICAN > 60; HDL CHOLESTEROL 52 mg/dL (30-70); LDL CHOLESTEROL 64 mg/dL (0-129)
--- NOTE | 2017-12-03 08:37 | RAD ---
PROCEDURE: CHEST RADIOGRAPH, 1 VIEW HISTORY: Palpations COMPARISON: 07/28/2014. FINDINGS: LUNGS: The lungs are well inflated and clear. PLEURA: No pneumothorax or pleural fluid seen. CARDIOVASCULAR: The heart is normal in size. Atherosclerotic aortic arch calcifications are present. . OSSEOUS STRUCTURES: No significant abnormalities. VISUALIZED UPPER ABDOMEN: Normal. OTHER FINDINGS: None. IMPRESSION: No active pulmonary disease.
--- NOTE | 2017-12-03 09:34 | CP.PCM.PN ---
Subjective - Date & Time of Evaluation Date of Evaluation: 12/03/17 Time of Evaluation: 09:15 - Subjective Subjective: Patient was seen and examined by me. She is AAO x 3, calm and not in any acute distress. 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 She came to the hospital feeling very weak, fatigued and also being unsteady on her feet and also nasuea. So far she has gotten a total of 90 of Kayexelate, 2 amps of calcium gluconate, multiple albuterol and lasix as well as IV insulin (along with dextrose) Overnight her K slowly decreased. She did report having bowel movements this morning. The K is now 3.5, per review of telemetry it looks NSR at this time. I did not see an new 12 lead EKG. She did stand and walk in the room, she looked ok. She reported feeling much better Probably transfer out of ICU sometime later today Objective - Vital Signs/Intake and Output Vital Signs (last 24 hours): Temp Pulse Resp BP Pulse Ox 98.6 F 69 20 145/45 L 98 12/03/17 04:00 12/03/17 07:12 12/03/17 07:12 12/03/17 07:12 12/03/17 07:12 Intake and Output: 12/03/17 12/03/17 06:59 18:59 Intake Total 1151.5 200 Output Total 3450 275 Balance -2298.5 -75 - Medications Medications: Current Medications Heparin Sodium (Porcine) (Heparin) 5,000 units SC Q8 [facility] Last Admin: 12/03/17 05:18 Dose: 5,000 units Insulin Aspart (Novolog) 0 unit SC Q6H MADHAVI PRN Reason: Protocol Last Admin: 12/03/17 05:10 Dose: 3 unit Pneumococcal Polyvalent Vaccine (Pneumovax 23 Vaccine) 0.5 ml IM .ONCE ONE Stop: 12/04/17 10:01 Vitamin A (Vitamin A & D Oint Ud Foilpak) 0.5 ea TOP Q4 PRN PRN Reason: For Dry Lips - Labs Labs: 12/03/17 07:46 12/03/17 06:21 PT 11.2 SECONDS (9.7-12.2) 12/02/17 18:37 INR 1.0 12/02/17 18:37 - Constitutional Appears: Well, Non-toxic, No Acute Distress - Head Exam Head Exam: NORMAL INSPECTION - Eye Exam Eye Exam: EOMI, Normal appearance - ENT Exam ENT Exam: Mucous Membranes Moist - Respiratory Exam Respiratory Exam: Clear to Ausculation Bilateral, NORMAL BREATHING PATTERN - Cardiovascular Exam Cardiovascular Exam: REGULAR RHYTHM. absent: Diastolic murmur - GI/Abdominal Exam GI & Abdominal Exam: Soft, Normal Bowel Sounds. absent: Guarding, Rigid, Tenderness - Neurological Exam Neurological Exam: Alert, Awake, Oriented x3 Neuro motor strength exam: Left Upper Extremity: 5, Right Upper Extremity: 5, Left Lower Extremity: 5, Right Lower Extremity: 5 - Psychiatric Exam Psychiatric exam: Normal Affect, Normal Mood - Skin Skin Exam: Normal Color, Warm Assessment and Plan - Assessment and Plan (Free Text) Assessment: Assessment: 1. Hyperkalemia 12/03: Improved. The K is now 3.5, she is ambulating in room. Reports better. -Potassium 8.3 on admission -Patient given, calcium gluconate, sodium bicarb, lasix, albuterol, kayexalate, and insulin in ED 2. Bradycardia 12/03: On telemtry monitor HR now in the 70s appears NSR. We are pending echo. The troponins have been negative She denied chest pain and shortness of breath. -Cardiology consulted, Dr. Munroe, help appreciated -patient took B angus this am, Glucagon given in ED 3. HTN 12/03: Systolic in the 140s. Holding FILI/ARB secondary to hyperkalemia 4. DMII -NPO -accuchecks q6hrs -ISS low dose 5. HLD -f/u lipid panel 6. Prophylaxis -Heparin 5000 u sc q8h
--- NOTE | 2017-12-03 12:58 | CP.PCM.CON ---
History of Present Illness - History of Present Illness History of Present Illness: Nephrology Consultation Note: Assessment: Stable Hyperkalemia ? lab/sampling error alkalosis, abnormal LFT Junctional Rhythm HTN (I12.0) Diabetes Mellitus Plan No acute need for renal replacement therapy at this time. normal renal function doubt the accuracy of initial K level considering normal renal function without severe acidosis/hyperglycemia Hypertension control with meds as ordered. held ARB due to hyperkalemia stop sodium chloride tabs Dose meds/antibiotics for normal GFR. Glycemic control Further work up/management as per primary team Thanks for allowing me to participate in care of your patient. Will follow further on as needed basis. Please call if any Qs. d/w team Dr Dorian Daniels Office: [phone] Chief Complaint; dizziness HPI: Pt is a 82 F with hx of diabetes Mellitus ( years), hypertension (years), Hyperlipidemia presented with complaints of nausea/vomitting and dizziness. she was found to have junctional rhythm, treated with glucagon, dopamine as pt was on beta-angus. also found to have hyperkalemia K 8.3 which was also medically treated. renal consult for hyperkalemia eval. Denies OTC/herbal meds or NSAIDs No recent iodinated contrast exposure. pt feels in usual health at this time ROS: Cardiovascular: No chest pain. Pulmonary: No shortness of breath Gastrointestinal: denies abdominal pain No nausea. No vomiting at present. Genitourinary: No pain while urinating. Denies blood in urine. All other negative except as mentioned in HPI Physical Examination: General Appearance: Comfortable, in no acute respiratory distress, co-operative . Vitals reviewed and noted as below Head; Atraumatic, normocephalic ENT: no ulcers no thrush. Tongue is midline. Oropharynx: no rash or ulcers. EYES: Pupils are equal, round and reactive to light accommodation. Eye muscles and extraocular movement intact. Sclera is anicteric. Neck; supple no lymphadenopathy, no thyromegaly or bruit Lungs: Normal respiratory rate/effort. Breath sounds bilateral equal and clear Heart: Normal rate. s1s2 normal. No rub or gallop. Extremities: no edema. No varicose veins Neurological: Patient is alert, awake and oriented to person, place and time. No focal deficit. Strength bilateral appropriate and equal Skin: Warm and dry. Normal turgor. No rash. Palpitation: Normal elasticity for age Abdomen: Abdomen is soft. Bowel sounds +. There is no abdominal tenderness, no guarding/rigidity no organomegaly Psych: normal insight and normal affect/mood MSK: no joint tenderness or swelling. Digits and nails normal, no deformity : kidney or bladder not palpable Labs/imaging reviewed. Past medical history, past surgical history, family history, social history, allergy reviewed and noted as below Family hx: no hx of CKD. Rest non-contributory UA: no blood or protein. SG 1.005 pH 8.0 Past Patient History - Past Medical History & Family History Past Medical History?: Yes - Past Social History Smoking Status: Never Smoked - CARDIAC Hx Hypercholesterolemia: Yes Hx Hypertension: Yes - PULMONARY Hx Respiratory Disorders: No - NEUROLOGICAL Hx Neurological Disorder: No - HEENT Hx Cataracts: Yes - RENAL Hx Chronic Kidney Disease: No - ENDOCRINE/METABOLIC Hx Diabetes Mellitus Type 2: Yes - HEMATOLOGICAL/ONCOLOGICAL Hx Blood Disorders: No - INTEGUMENTARY Hx Dermatological Problems: No - MUSCULOSKELETAL/RHEUMATOLOGICAL Hx Falls: Yes - GASTROINTESTINAL Hx Gastroesophageal Reflux: Yes - GENITOURINARY/GYNECOLOGICAL Hx Genitourinary Disorders: No - PSYCHIATRIC Hx Substance Use: No - SURGICAL HISTORY Hx Appendectomy: Yes Hx Hysterectomy: Yes - ANESTHESIA Hx Anesthesia: Yes Hx Anesthesia Reactions: No Meds Allergies/Adverse Reactions: Allergies Allergy/AdvReac Type Severity Reaction Status Date / Time No Known Allergies Allergy Verified 12/02/17 18:18 - Medications Medications: Current Medications Heparin Sodium (Porcine) (Heparin) 5,000 units SC Q8 [facility] Last Admin: 12/03/17 05:18 Dose: 5,000 units Insulin Aspart (Novolog) 0 unit SC ACHS [facility] PRN Reason: Protocol Last Admin: 12/03/17 11:45 Dose: Not Given Pneumococcal Polyvalent Vaccine (Pneumovax 23 Vaccine) 0.5 ml IM .ONCE ONE Stop: 12/04/17 10:01 Vitamin A (Vitamin A & D Oint Ud Foilpak) 0.5 ea TOP Q4 PRN PRN Reason: For Dry Lips Last Admin: 12/03/17 10:05 Dose: 0.5 ea Results - Vital Signs Recent Vital Signs: Last Vital Signs Temp 98.6 F 12/03/17 04:00 Pulse 79 12/03/17 10:12 Resp 18 12/03/17 10:12 BP 152/53 H 12/03/17 10:12 Pulse Ox 97 12/03/17 10:12 - Labs Result Diagrams: 12/03/17 07:46 12/03/17 06:21 Labs: Laboratory Results - last 24 hr 12/02/17 12/02/17 12/02/17 18:11 18:37 18:37 WBC 10.8 RBC 4.52 Hgb 10.5 L Hct 33.0 L MCV 72.9 L MCH 23.2 L MCHC 31.8 L RDW 15.8 H Plt Count 252 MPV 8.1 Neut % (Auto) 77.7 H Lymph % (Auto) 17.1 L Park % (Auto) 4.5 Eos % (Auto) 0.2 Baso % (Auto) 0.5 Neut # (Auto) 8.4 H Lymph # (Auto) 1.8 Park # (Auto) 0.5 Eos # (Auto) 0.0 Baso # (Auto) 0.1 PT 11.2 INR 1.0 Sodium Potassium Chloride Carbon Dioxide Anion Gap BUN Creatinine Est GFR ( Amer) Est GFR (Non-Af Amer) POC Glucose (mg/dL) 167 H Random Glucose Hemoglobin A1c Calcium Phosphorus Magnesium Total Bilirubin AST ALT Alkaline Phosphatase Total Creatine Kinase CK-MB (Mass) Troponin I NT-Pro-B Natriuret Pep Total Protein Albumin Globulin Albumin/Globulin Ratio Triglycerides Cholesterol LDL Cholesterol Direct HDL Cholesterol Free T4 TSH 3rd Generation Urine Color Urine Clarity Urine pH Ur Specific [place] Urine Protein Urine Glucose (UA) Urine Ketones Urine Blood Urine Nitrate Urine Bilirubin Urine Urobilinogen Ur Leukocyte Esterase Urine WBC (Auto) Urine RBC (Auto) Urine Bacteria Urine Opiates Screen Urine Methadone Screen Ur Barbiturates Screen Ur Phencyclidine Scrn Ur Amphetamines Screen U Benzodiazepines Scrn U Oth Cocaine Metabols U Cannabinoids Screen 12/02/17 12/02/17 12/02/17 18:37 18:37 20:28 WBC RBC Hgb Hct MCV MCH MCHC RDW Plt Count MPV Neut % (Auto) Lymph % (Auto) Park % (Auto) Eos % (Auto) Baso % (Auto) Neut # (Auto) Lymph # (Auto) Park # (Auto) Eos # (Auto) Baso # (Auto) PT INR Sodium 138 Potassium 8.3 H* Chloride 97 L Carbon Dioxide 31 H Anion Gap 19 BUN 22 H Creatinine 1.0 Est GFR ( Amer) > 60 Est GFR (Non-Af Amer) 53 POC Glucose (mg/dL) Random Glucose 167 H Hemoglobin A1c Calcium 9.0 Phosphorus Magnesium Total Bilirubin 0.6 AST 177 H ALT 161 H Alkaline Phosphatase 89 Total Creatine Kinase CK-MB (Mass) Troponin I < 0.0120 NT-Pro-B Natriuret Pep 696 Total Protein 7.6 Albumin 4.2 Globulin 3.4 Albumin/Globulin Ratio 1.2 Triglycerides Cholesterol LDL Cholesterol Direct HDL Cholesterol Free T4 1.82 TSH 3rd Generation 2.19 Urine Color Urine Clarity Urine pH Ur Specific [place] Urine Protein Urine Glucose (UA) Urine Ketones Urine Blood Urine Nitrate Urine Bilirubin Urine Urobilinogen Ur Leukocyte Esterase Urine WBC (Auto) Urine RBC (Auto) Urine Bacteria Urine Opiates Screen Urine Methadone Screen Ur Barbiturates Screen Ur Phencyclidine Scrn Ur Amphetamines Screen U Benzodiazepines Scrn U Oth Cocaine Metabols U Cannabinoids Screen 12/02/17 12/02/17 12/02/17 20:28 23:19 23:33 WBC RBC Hgb Hct MCV MCH MCHC RDW Plt Count MPV Neut % (Auto) Lymph % (Auto) Park % (Auto) Eos % (Auto) Baso % (Auto) Neut # (Auto) Lymph # (Auto) Park # (Auto) Eos # (Auto) Baso # (Auto) PT INR Sodium Potassium Chloride Carbon Dioxide Anion Gap BUN Creatinine Est GFR ( Amer) Est GFR (Non-Af Amer) POC Glucose (mg/dL) 194 H Random Glucose Hemoglobin A1c Calcium Phosphorus Magnesium Total Bilirubin AST ALT Alkaline Phosphatase Total Creatine Kinase CK-MB (Mass) Troponin I NT-Pro-B Natriuret Pep Total Protein Albumin Globulin Albumin/Globulin Ratio Triglycerides Cholesterol LDL Cholesterol Direct HDL Cholesterol Free T4 TSH 3rd Generation Urine Color Colorless Urine Clarity Clear Urine pH 8.0 Ur Specific [place] 1.005 Urine Protein Negative Urine Glucose (UA) 1+ Urine Ketones Negative Urine Blood Negative Urine Nitrate Negative Urine Bilirubin Negative Urine Urobilinogen Normal Ur Leukocyte Esterase Neg Urine WBC (Auto) 1 Urine RBC (Auto) 3 Urine Bacteria Rare Urine Opiates Screen Negative Urine Methadone Screen Negative Ur Barbiturates Screen Negative Ur Phencyclidine Scrn Negative Ur Amphetamines Screen Negative U Benzodiazepines Scrn Negative U Oth Cocaine Metabols Negative U Cannabinoids Screen Negative 12/02/17 12/03/17 12/03/17 23:33 00:22 05:01 WBC RBC Hgb Hct MCV MCH MCHC RDW Plt Count MPV Neut % (Auto) Lymph % (Auto) Park % (Auto) Eos % (Auto) Baso % (Auto) Neut # (Auto) Lymph # (Auto) Park # (Auto) Eos # (Auto) Baso # (Auto) PT INR Sodium 142 Potassium 4.5 Chloride 97 L Carbon Dioxide 34 H Anion Gap 16 BUN 21 H Creatinine 0.9 Est GFR ( Amer) > 60 Est GFR (Non-Af Amer) 60 POC Glucose (mg/dL) 254 H Random Glucose 210 H Hemoglobin A1c Calcium 9.5 Phosphorus 3.1 Magnesium 2.4 H Total Bilirubin 0.5 AST 335 H D ALT 295 H D Alkaline Phosphatase 87 Total Creatine Kinase 89 CK-MB (Mass) 1.02 Troponin I < 0.0120 NT-Pro-B Natriuret Pep Total Protein 7.3 Albumin 4.2 Globulin 3.1 Albumin/Globulin Ratio 1.4 Triglycerides Cholesterol LDL Cholesterol Direct HDL Cholesterol Free T4 TSH 3rd Generation 1.49 Urine Color Urine Clarity Urine pH Ur Specific [place] Urine Protein Urine Glucose (UA) Urine Ketones Urine Blood Urine Nitrate Urine Bilirubin Urine Urobilinogen Ur Leukocyte Esterase Urine WBC (Auto) Urine RBC (Auto) Urine Bacteria Urine Opiates Screen Urine Methadone Screen Ur Barbiturates Screen Ur Phencyclidine Scrn Ur Amphetamines Screen U Benzodiazepines Scrn U Oth Cocaine Metabols U Cannabinoids Screen 12/03/17 12/03/17 12/03/17 06:21 06:21 07:46 WBC 7.6 RBC 3.96 Hgb 9.4 L Hct 28.8 L MCV 72.9 L MCH 23.8 L MCHC 32.6 L RDW 16.3 H Plt Count 240 MPV 8.8 Neut % (Auto) 78.0 H Lymph % (Auto) 12.2 L Park % (Auto) 9.4 Eos % (Auto) 0.1 Baso % (Auto) 0.3 Neut # (Auto) 5.9 Lymph # (Auto) 0.9 L [place] # (Auto) 0.7 Eos # (Auto) 0.0 Baso # (Auto) 0.0 PT INR Sodium 143 Potassium 3.5 L Chloride 97 L Carbon Dioxide 34 H Anion Gap 16 BUN 17 Creatinine 0.8 Est GFR ( Amer) > 60 Est GFR (Non-Af Amer) > 60 POC Glucose (mg/dL) Random Glucose 256 H Hemoglobin A1c 7.1 H Calcium 9.0 Phosphorus 3.9 Magnesium 2.3 Total Bilirubin 0.4 AST 220 H D ALT 260 H Alkaline Phosphatase 81 Total Creatine Kinase 77 CK-MB (Mass) 0.63 Troponin I < 0.0120 NT-Pro-B Natriuret Pep Total Protein 7.1 Albumin 4.0 Globulin 3.1 Albumin/Globulin Ratio 1.3 Triglycerides 46 Cholesterol 137 LDL Cholesterol Direct 64 HDL Cholesterol 52 Free T4 TSH 3rd Generation Urine Color Urine Clarity Urine pH Ur Specific [place] Urine Protein Urine Glucose (UA) Urine Ketones Urine Blood Urine Nitrate Urine Bilirubin Urine Urobilinogen Ur Leukocyte Esterase Urine WBC (Auto) Urine RBC (Auto) Urine Bacteria Urine Opiates Screen Urine Methadone Screen Ur Barbiturates Screen Ur Phencyclidine Scrn Ur Amphetamines Screen U Benzodiazepines Scrn U Oth Cocaine Metabols U Cannabinoids Screen 12/03/17 11:22 WBC RBC Hgb Hct MCV MCH MCHC RDW Plt Count MPV Neut % (Auto) Lymph % (Auto) Park % (Auto) Eos % (Auto) Baso % (Auto) Neut # (Auto) Lymph # (Auto) Park # (Auto) Eos # (Auto) Baso # (Auto) PT INR Sodium Potassium Chloride Carbon Dioxide Anion Gap BUN Creatinine Est GFR ( Amer) Est GFR (Non-Af Amer) POC Glucose (mg/dL) 143 H Random Glucose Hemoglobin A1c Calcium Phosphorus Magnesium Total Bilirubin AST ALT Alkaline Phosphatase Total Creatine Kinase CK-MB (Mass) Troponin I NT-Pro-B Natriuret Pep Total Protein Albumin Globulin Albumin/Globulin Ratio Triglycerides Cholesterol LDL Cholesterol Direct HDL Cholesterol Free T4 TSH 3rd Generation Urine Color Urine Clarity Urine pH Ur Specific [place] Urine Protein Urine Glucose (UA) Urine Ketones Urine Blood Urine Nitrate Urine Bilirubin Urine Urobilinogen Ur Leukocyte Esterase Urine WBC (Auto) Urine RBC (Auto) Urine Bacteria Urine Opiates Screen Urine Methadone Screen Ur Barbiturates Screen Ur Phencyclidine Scrn Ur Amphetamines Screen U Benzodiazepines Scrn U Oth Cocaine Metabols U Cannabinoids Screen
--- NOTE | 2017-12-03 13:17 | CP.CCUPN ---
<Gricelda Gradna - Last Filed: 12/03/17 14:20> CCU Subjective - Physician Review Subjective (Free Text): 12/03/17 13:15 Patient seen and examined at bedside. Per nursing no acute events overnight. Patient states that she was taking natural potassium supplements at home. She is doing well, offering no complaints. Asking for food. Denies headache, dizziness, cp, palpitations, sob, urinary symptoms. Plan to downgrade to Med/ Surg today. CCU Objective - Vital Signs / Intake & Output Vital Signs (Last 4 hours): Vital Signs Pulse Resp BP Pulse Ox 12/03/17 10:12 79 18 152/53 H 97 Intake and Output (Last 8hrs): Intake & Output 12/02/17 12/03/17 12/03/17 22:59 06:59 14:59 Intake Total 100 1051.5 425 Output Total 1050 2400 275 Balance -950 -1348.5 150 Weight 60.781 kg 60.373 kg Intake: Intake, IV Amount 100 931.5 300 Left Forearm 27.0 Right Forearm 100 900 300 Right Hand 4.5 Oral 120 125 Output: Urine 1050 1400 275 Urethral (Jo) 100 1400 275 Emesis 1000 Other: Voiding Method Indwelling Catheter # Bowel Movements 0 - Physical Exam Head: Positive for: Atraumatic, Normocephalic Pupils: Positive for: PERRL Extroacular Muscles: Positive for: EOMI Conjunctiva: Positive for: Normal Mouth: Positive for: Moist Mucous Membranes Respiratory/Chest: Positive for: Clear to Auscultation. Negative for: Accessory Muscle Use Cardiovascular: Positive for: Regular Rate and Rhythm, Normal S1, S2 Abdomen: Positive for: Distention (obese abdomen), Normal Bowel Sounds. Negative for: Tenderness, Peritoneal Signs Upper Extremity: Negative for: Cyanosis, Edema Lower Extremity: Negative for: Edema Skin: Positive for: Warm, Dry, Normal Color Psychiatric: Positive for: Alert, Oriented x 3 - Medications Active Medications: Active Medications Generic Name Dose Route Start Last Admin Trade Name Freq PRN Reason Stop Dose Admin Heparin Sodium (Porcine) 5,000 units 12/03/17 06:00 12/03/17 05:18 Heparin SC 5,000 units Q8 MADHAVI Administration Insulin Aspart 0 unit 12/03/17 11:30 12/03/17 11:45 Novolog SC Not Given ACHS MADHAVI Protocol Pneumococcal Polyvalent Vaccine 0.5 ml 12/04/17 10:00 Pneumovax 23 Vaccine IM 12/04/17 10:01 .ONCE ONE Vitamin A 0.5 ea 12/03/17 08:15 12/03/17 10:05 Vitamin A & D Oint Ud Foilpak TOP 0.5 ea Q4 PRN Administration For Dry Lips - Patient Studies Lab Studies: Lab Studies 12/03/17 12/03/17 12/03/17 Range/Units 11:22 07:46 06:21 WBC 7.6 (4.8-10.8) K/uL RBC 3.96 (3.80-5.20) Mil/uL Hgb 9.4 L (11.0-16.0) g/dL Hct 28.8 L (34.0-47.0) % MCV 72.9 L (81.0-99.0) fL MCH 23.8 L (27.0-31.0) pg MCHC 32.6 L (33.0-37.0) g/dL RDW 16.3 H (11.5-14.5) % Plt Count 240 (130-400) K/uL MPV 8.8 (7.2-11.7) fL Neut % (Auto) 78.0 H (50.0-75.0) % Lymph % (Auto) 12.2 L (20.0-40.0) % Lea % (Auto) 9.4 (0.0-10.0) % Eos % (Auto) 0.1 (0.0-4.0) % Baso % (Auto) 0.3 (0.0-2.0) % Neut # (Auto) 5.9 (1.8-7.0) K/uL Lymph # (Auto) 0.9 L (1.0-4.3) K/uL Lea # (Auto) 0.7 (0.0-0.8) K/uL Eos # (Auto) 0.0 (0.0-0.7) K/uL Baso # (Auto) 0.0 (0.0-0.2) K/uL PT (9.7-12.2) SECONDS INR Sodium (132-148) mmol/L Potassium (3.6-5.2) mmol/L Chloride (98-107) mmol/L Carbon Dioxide (22-30) mmol/L Anion Gap (10-20) BUN (7-17) mg/dL Creatinine (0.7-1.2) mg/dL Est GFR ( Amer) Est GFR (Non-Af Amer) POC Glucose (mg/dL) 143 H (65-110) mg/dL Random Glucose (65-105) mg/dL Hemoglobin A1c 7.1 H (4.2-6.5) % Calcium (8.6-10.4) mg/dl Phosphorus (2.5-4.5) mg/dL Magnesium (1.6-2.3) mg/dL Total Bilirubin (0.2-1.3) mg/dL AST (14-36) U/L ALT (9-52) U/L Alkaline Phosphatase (38-126) U/L Total Creatine Kinase (30-135) U/L CK-MB (Mass) (0.0-3.38) ng/mL Troponin I (0.00-0.120) ng/mL NT-Pro-B Natriuret Pep (0-900) pg/mL Total Protein (6.3-8.3) g/dL Albumin (3.5-5.0) g/dL Globulin (2.2-3.9) gm/dL Albumin/Globulin Ratio (1.0-2.1) Triglycerides (0-149) mg/dL Cholesterol (0-199) mg/dL LDL Cholesterol Direct (0-129) mg/dL HDL Cholesterol (30-70) mg/dL Free T4 (0.78-2.19) ng/dL TSH 3rd Generation (0.46-4.68) mIU/L Urine Color (YELLOW) Urine Clarity (Clear) Urine pH (5.0-8.0) Ur Specific Ramona (1.003-1.030) Urine Protein (NEGATIVE) mg/dL Urine Glucose (UA) (Normal) mg/dL Urine Ketones (NEGATIVE) mg/dL Urine Blood (NEGATIVE) Urine Nitrate (NEGATIVE) Urine Bilirubin (NEGATIVE) Urine Urobilinogen (0.2-1.0) mg/dL Ur Leukocyte Esterase (Negative) Lg/uL Urine WBC (Auto) (0-5) /hpf Urine RBC (Auto) (0-3) /hpf Urine Bacteria (<OCC) Urine Opiates Screen (NEGATIVE) Urine Methadone Screen (NEGATIVE) Ur Barbiturates Screen (NEGATIVE) Ur Phencyclidine Scrn (NEGATIVE) Ur Amphetamines Screen (NEGATIVE) U Benzodiazepines Scrn (NEGATIVE) U Oth Cocaine Metabols (NEGATIVE) U Cannabinoids Screen (NEGATIVE) 12/03/17 12/03/17 12/03/17 Range/Units 06:21 05:01 00:22 WBC (4.8-10.8) K/uL RBC (3.80-5.20) Mil/uL Hgb (11.0-16.0) g/dL Hct (34.0-47.0) % MCV (81.0-99.0) fL MCH (27.0-31.0) pg MCHC (33.0-37.0) g/dL RDW (11.5-14.5) % Plt Count (130-400) K/uL MPV (7.2-11.7) fL Neut % (Auto) (50.0-75.0) % Lymph % (Auto) (20.0-40.0) % Lea % (Auto) (0.0-10.0) % Eos % (Auto) (0.0-4.0) % Baso % (Auto) (0.0-2.0) % Neut # (Auto) (1.8-7.0) K/uL Lymph # (Auto) (1.0-4.3) K/uL Lea # (Auto) (0.0-0.8) K/uL Eos # (Auto) (0.0-0.7) K/uL Baso # (Auto) (0.0-0.2) K/uL PT (9.7-12.2) SECONDS INR Sodium 143 (132-148) mmol/L Potassium 3.5 L (3.6-5.2) mmol/L Chloride 97 L (98-107) mmol/L Carbon Dioxide 34 H (22-30) mmol/L Anion Gap 16 (10-20) BUN 17 (7-17) mg/dL Creatinine 0.8 (0.7-1.2) mg/dL Est GFR ( Amer) > 60 Est GFR (Non-Af Amer) > 60 POC Glucose (mg/dL) 254 H (65-110) mg/dL Random Glucose 256 H (65-105) mg/dL Hemoglobin A1c (4.2-6.5) % Calcium 9.0 (8.6-10.4) mg/dl Phosphorus 3.9 (2.5-4.5) mg/dL Magnesium 2.3 (1.6-2.3) mg/dL Total Bilirubin 0.4 (0.2-1.3) mg/dL AST 220 H D (14-36) U/L ALT 260 H (9-52) U/L Alkaline Phosphatase 81 (38-126) U/L Total Creatine Kinase 77 89 (30-135) U/L CK-MB (Mass) 0.63 1.02 (0.0-3.38) ng/mL Troponin I < 0.0120 < 0.0120 (0.00-0.120) ng/mL NT-Pro-B Natriuret Pep (0-900) pg/mL Total Protein 7.1 (6.3-8.3) g/dL Albumin 4.0 (3.5-5.0) g/dL Globulin 3.1 (2.2-3.9) gm/dL Albumin/Globulin Ratio 1.3 (1.0-2.1) Triglycerides 46 (0-149) mg/dL Cholesterol 137 (0-199) mg/dL LDL Cholesterol Direct 64 (0-129) mg/dL HDL Cholesterol 52 (30-70) mg/dL Free T4 (0.78-2.19) ng/dL TSH 3rd Generation (0.46-4.68) mIU/L Urine Color (YELLOW) Urine Clarity (Clear) Urine pH (5.0-8.0) Ur Specific Ramona (1.003-1.030) Urine Protein (NEGATIVE) mg/dL Urine Glucose (UA) (Normal) mg/dL Urine Ketones (NEGATIVE) mg/dL Urine Blood (NEGATIVE) Urine Nitrate (NEGATIVE) Urine Bilirubin (NEGATIVE) Urine Urobilinogen (0.2-1.0) mg/dL Ur Leukocyte Esterase (Negative) Lg/uL Urine WBC (Auto) (0-5) /hpf Urine RBC (Auto) (0-3) /hpf Urine Bacteria (<OCC) Urine Opiates Screen (NEGATIVE) Urine Methadone Screen (NEGATIVE) Ur Barbiturates Screen (NEGATIVE) Ur Phencyclidine Scrn (NEGATIVE) Ur Amphetamines Screen (NEGATIVE) U Benzodiazepines Scrn (NEGATIVE) U Oth Cocaine Metabols (NEGATIVE) U Cannabinoids Screen (NEGATIVE) 12/02/17 12/02/17 12/02/17 Range/Units 23:33 23:33 23:19 WBC (4.8-10.8) K/uL RBC (3.80-5.20) Mil/uL Hgb (11.0-16.0) g/dL Hct (34.0-47.0) % MCV (81.0-99.0) fL MCH (27.0-31.0) pg MCHC (33.0-37.0) g/dL RDW (11.5-14.5) % Plt Count (130-400) K/uL MPV (7.2-11.7) fL Neut % (Auto) (50.0-75.0) % Lymph % (Auto) (20.0-40.0) % Lea % (Auto) (0.0-10.0) % Eos % (Auto) (0.0-4.0) % Baso % (Auto) (0.0-2.0) % Neut # (Auto) (1.8-7.0) K/uL Lymph # (Auto) (1.0-4.3) K/uL Lea # (Auto) (0.0-0.8) K/uL Eos # (Auto) (0.0-0.7) K/uL Baso # (Auto) (0.0-0.2) K/uL PT (9.7-12.2) SECONDS INR Sodium 142 (132-148) mmol/L Potassium 4.5 (3.6-5.2) mmol/L Chloride 97 L (98-107) mmol/L Carbon Dioxide 34 H (22-30) mmol/L Anion Gap 16 (10-20) BUN 21 H (7-17) mg/dL Creatinine 0.9 (0.7-1.2) mg/dL Est GFR ( Amer) > 60 Est GFR (Non-Af Amer) 60 POC Glucose (mg/dL) 194 H (65-110) mg/dL Random Glucose 210 H (65-105) mg/dL Hemoglobin A1c (4.2-6.5) % Calcium 9.5 (8.6-10.4) mg/dl Phosphorus 3.1 (2.5-4.5) mg/dL Magnesium 2.4 H (1.6-2.3) mg/dL Total Bilirubin 0.5 (0.2-1.3) mg/dL AST 335 H D (14-36) U/L ALT 295 H D (9-52) U/L Alkaline Phosphatase 87 (38-126) U/L Total Creatine Kinase (30-135) U/L CK-MB (Mass) (0.0-3.38) ng/mL Troponin I (0.00-0.120) ng/mL NT-Pro-B Natriuret Pep (0-900) pg/mL Total Protein 7.3 (6.3-8.3) g/dL Albumin 4.2 (3.5-5.0) g/dL Globulin 3.1 (2.2-3.9) gm/dL Albumin/Globulin Ratio 1.4 (1.0-2.1) Triglycerides (0-149) mg/dL Cholesterol (0-199) mg/dL LDL Cholesterol Direct (0-129) mg/dL HDL Cholesterol (30-70) mg/dL Free T4 (0.78-2.19) ng/dL TSH 3rd Generation 1.49 (0.46-4.68) mIU/L Urine Color (YELLOW) Urine Clarity (Clear) Urine pH (5.0-8.0) Ur Specific Ramona (1.003-1.030) Urine Protein (NEGATIVE) mg/dL Urine Glucose (UA) (Normal) mg/dL Urine Ketones (NEGATIVE) mg/dL Urine Blood (NEGATIVE) Urine Nitrate (NEGATIVE) Urine Bilirubin (NEGATIVE) Urine Urobilinogen (0.2-1.0) mg/dL Ur Leukocyte Esterase (Negative) Lg/uL Urine WBC (Auto) (0-5) /hpf Urine RBC (Auto) (0-3) /hpf Urine Bacteria (<OCC) Urine Opiates Screen Negative (NEGATIVE) Urine Methadone Screen Negative (NEGATIVE) Ur Barbiturates Screen Negative (NEGATIVE) Ur Phencyclidine Scrn Negative (NEGATIVE) Ur Amphetamines Screen Negative (NEGATIVE) U Benzodiazepines Scrn Negative (NEGATIVE) U Oth Cocaine Metabols Negative (NEGATIVE) U Cannabinoids Screen Negative (NEGATIVE) 12/02/17 12/02/17 12/02/17 Range/Units 20:28 20:28 18:37 WBC (4.8-10.8) K/uL RBC (3.80-5.20) Mil/uL Hgb (11.0-16.0) g/dL Hct (34.0-47.0) % MCV (81.0-99.0) fL MCH (27.0-31.0) pg MCHC (33.0-37.0) g/dL RDW (11.5-14.5) % Plt Count (130-400) K/uL MPV (7.2-11.7) fL Neut % (Auto) (50.0-75.0) % Lymph % (Auto) (20.0-40.0) % Lea % (Auto) (0.0-10.0) % Eos % (Auto) (0.0-4.0) % Baso % (Auto) (0.0-2.0) % Neut # (Auto) (1.8-7.0) K/uL Lymph # (Auto) (1.0-4.3) K/uL Lea # (Auto) (0.0-0.8) K/uL Eos # (Auto) (0.0-0.7) K/uL Baso # (Auto) (0.0-0.2) K/uL PT (9.7-12.2) SECONDS INR Sodium (132-148) mmol/L Potassium (3.6-5.2) mmol/L Chloride (98-107) mmol/L Carbon Dioxide (22-30) mmol/L Anion Gap (10-20) BUN (7-17) mg/dL Creatinine (0.7-1.2) mg/dL Est GFR ( Amer) Est GFR (Non-Af Amer) POC Glucose (mg/dL) (65-110) mg/dL Random Glucose (65-105) mg/dL Hemoglobin A1c (4.2-6.5) % Calcium (8.6-10.4) mg/dl Phosphorus (2.5-4.5) mg/dL Magnesium (1.6-2.3) mg/dL Total Bilirubin (0.2-1.3) mg/dL AST (14-36) U/L ALT (9-52) U/L Alkaline Phosphatase (38-126) U/L Total Creatine Kinase (30-135) U/L CK-MB (Mass) (0.0-3.38) ng/mL Troponin I (0.00-0.120) ng/mL NT-Pro-B Natriuret Pep 696 (0-900) pg/mL Total Protein (6.3-8.3) g/dL Albumin (3.5-5.0) g/dL Globulin (2.2-3.9) gm/dL Albumin/Globulin Ratio (1.0-2.1) Triglycerides (0-149) mg/dL Cholesterol (0-199) mg/dL LDL Cholesterol Direct (0-129) mg/dL HDL Cholesterol (30-70) mg/dL Free T4 1.82 (0.78-2.19) ng/dL TSH 3rd Generation 2.19 (0.46-4.68) mIU/L Urine Color Colorless (YELLOW) Urine Clarity Clear (Clear) Urine pH 8.0 (5.0-8.0) Ur Specific Ramona 1.005 (1.003-1.030) Urine Protein Negative (NEGATIVE) mg/dL Urine Glucose (UA) 1+ (Normal) mg/dL Urine Ketones Negative (NEGATIVE) mg/dL Urine Blood Negative (NEGATIVE) Urine Nitrate Negative (NEGATIVE) Urine Bilirubin Negative (NEGATIVE) Urine Urobilinogen Normal (0.2-1.0) mg/dL Ur Leukocyte Esterase Neg (Negative) Lg/uL Urine WBC (Auto) 1 (0-5) /hpf Urine RBC (Auto) 3 (0-3) /hpf Urine Bacteria Rare (<OCC) Urine Opiates Screen (NEGATIVE) Urine Methadone Screen (NEGATIVE) Ur Barbiturates Screen (NEGATIVE) Ur Phencyclidine Scrn (NEGATIVE) Ur Amphetamines Screen (NEGATIVE) U Benzodiazepines Scrn (NEGATIVE) U Oth Cocaine Metabols (NEGATIVE) U Cannabinoids Screen (NEGATIVE) 12/02/17 12/02/17 12/02/17 Range/Units 18:37 18:37 18:37 WBC 10.8 (4.8-10.8) K/uL RBC 4.52 (3.80-5.20) Mil/uL Hgb 10.5 L (11.0-16.0) g/dL Hct 33.0 L (34.0-47.0) % MCV 72.9 L (81.0-99.0) fL MCH 23.2 L (27.0-31.0) pg MCHC 31.8 L (33.0-37.0) g/dL RDW 15.8 H (11.5-14.5) % Plt Count 252 (130-400) K/uL MPV 8.1 (7.2-11.7) fL Neut % (Auto) 77.7 H (50.0-75.0) % Lymph % (Auto) 17.1 L (20.0-40.0) % Lea % (Auto) 4.5 (0.0-10.0) % Eos % (Auto) 0.2 (0.0-4.0) % Baso % (Auto) 0.5 (0.0-2.0) % Neut # (Auto) 8.4 H (1.8-7.0) K/uL Lymph # (Auto) 1.8 (1.0-4.3) K/uL Lea # (Auto) 0.5 (0.0-0.8) K/uL Eos # (Auto) 0.0 (0.0-0.7) K/uL Baso # (Auto) 0.1 (0.0-0.2) K/uL PT 11.2 (9.7-12.2) SECONDS INR 1.0 Sodium 138 (132-148) mmol/L Potassium 8.3 H* (3.6-5.2) mmol/L Chloride 97 L (98-107) mmol/L Carbon Dioxide 31 H (22-30) mmol/L Anion Gap 19 (10-20) BUN 22 H (7-17) mg/dL Creatinine 1.0 (0.7-1.2) mg/dL Est GFR ( Amer) > 60 Est GFR (Non-Af Amer) 53 POC Glucose (mg/dL) (65-110) mg/dL Random Glucose 167 H (65-105) mg/dL Hemoglobin A1c (4.2-6.5) % Calcium 9.0 (8.6-10.4) mg/dl Phosphorus (2.5-4.5) mg/dL Magnesium (1.6-2.3) mg/dL Total Bilirubin 0.6 (0.2-1.3) mg/dL AST 177 H (14-36) U/L ALT 161 H (9-52) U/L Alkaline Phosphatase 89 (38-126) U/L Total Creatine Kinase (30-135) U/L CK-MB (Mass) (0.0-3.38) ng/mL Troponin I < 0.0120 (0.00-0.120) ng/mL NT-Pro-B Natriuret Pep (0-900) pg/mL Total Protein 7.6 (6.3-8.3) g/dL Albumin 4.2 (3.5-5.0) g/dL Globulin 3.4 (2.2-3.9) gm/dL Albumin/Globulin Ratio 1.2 (1.0-2.1) Triglycerides (0-149) mg/dL Cholesterol (0-199) mg/dL LDL Cholesterol Direct (0-129) mg/dL HDL Cholesterol (30-70) mg/dL Free T4 (0.78-2.19) ng/dL TSH 3rd Generation (0.46-4.68) mIU/L Urine Color (YELLOW) Urine Clarity (Clear) Urine pH (5.0-8.0) Ur Specific Ramona (1.003-1.030) Urine Protein (NEGATIVE) mg/dL Urine Glucose (UA) (Normal) mg/dL Urine Ketones (NEGATIVE) mg/dL Urine Blood (NEGATIVE) Urine Nitrate (NEGATIVE) Urine Bilirubin (NEGATIVE) Urine Urobilinogen (0.2-1.0) mg/dL Ur Leukocyte Esterase (Negative) Lg/uL Urine WBC (Auto) (0-5) /hpf Urine RBC (Auto) (0-3) /hpf Urine Bacteria (<OCC) Urine Opiates Screen (NEGATIVE) Urine Methadone Screen (NEGATIVE) Ur Barbiturates Screen (NEGATIVE) Ur Phencyclidine Scrn (NEGATIVE) Ur Amphetamines Screen (NEGATIVE) U Benzodiazepines Scrn (NEGATIVE) U Oth Cocaine Metabols (NEGATIVE) U Cannabinoids Screen (NEGATIVE) 12/02/17 Range/Units 18:11 WBC (4.8-10.8) K/uL RBC (3.80-5.20) Mil/uL Hgb (11.0-16.0) g/dL Hct (34.0-47.0) % MCV (81.0-99.0) fL MCH (27.0-31.0) pg MCHC (33.0-37.0) g/dL RDW (11.5-14.5) % Plt Count (130-400) K/uL MPV (7.2-11.7) fL Neut % (Auto) (50.0-75.0) % Lymph % (Auto) (20.0-40.0) % Lea % (Auto) (0.0-10.0) % Eos % (Auto) (0.0-4.0) % Baso % (Auto) (0.0-2.0) % Neut # (Auto) (1.8-7.0) K/uL Lymph # (Auto) (1.0-4.3) K/uL Lea # (Auto) (0.0-0.8) K/uL Eos # (Auto) (0.0-0.7) K/uL Baso # (Auto) (0.0-0.2) K/uL PT (9.7-12.2) SECONDS INR Sodium (132-148) mmol/L Potassium (3.6-5.2) mmol/L Chloride (98-107) mmol/L Carbon Dioxide (22-30) mmol/L Anion Gap (10-20) BUN (7-17) mg/dL Creatinine (0.7-1.2) mg/dL Est GFR ( Amer) Est GFR (Non-Af Amer) POC Glucose (mg/dL) 167 H (65-110) mg/dL Random Glucose (65-105) mg/dL Hemoglobin A1c (4.2-6.5) % Calcium (8.6-10.4) mg/dl Phosphorus (2.5-4.5) mg/dL Magnesium (1.6-2.3) mg/dL Total Bilirubin (0.2-1.3) mg/dL AST (14-36) U/L ALT (9-52) U/L Alkaline Phosphatase (38-126) U/L Total Creatine Kinase (30-135) U/L CK-MB (Mass) (0.0-3.38) ng/mL Troponin I (0.00-0.120) ng/mL NT-Pro-B Natriuret Pep (0-900) pg/mL Total Protein (6.3-8.3) g/dL Albumin (3.5-5.0) g/dL Globulin (2.2-3.9) gm/dL Albumin/Globulin Ratio (1.0-2.1) Triglycerides (0-149) mg/dL Cholesterol (0-199) mg/dL LDL Cholesterol Direct (0-129) mg/dL HDL Cholesterol (30-70) mg/dL Free T4 (0.78-2.19) ng/dL TSH 3rd Generation (0.46-4.68) mIU/L Urine Color (YELLOW) Urine Clarity (Clear) Urine pH (5.0-8.0) Ur Specific Ramona (1.003-1.030) Urine Protein (NEGATIVE) mg/dL Urine Glucose (UA) (Normal) mg/dL Urine Ketones (NEGATIVE) mg/dL Urine Blood (NEGATIVE) Urine Nitrate (NEGATIVE) Urine Bilirubin (NEGATIVE) Urine Urobilinogen (0.2-1.0) mg/dL Ur Leukocyte Esterase (Negative) Lg/uL Urine WBC (Auto) (0-5) /hpf Urine RBC (Auto) (0-3) /hpf Urine Bacteria (<OCC) Urine Opiates Screen (NEGATIVE) Urine Methadone Screen (NEGATIVE) Ur Barbiturates Screen (NEGATIVE) Ur Phencyclidine Scrn (NEGATIVE) Ur Amphetamines Screen (NEGATIVE) U Benzodiazepines Scrn (NEGATIVE) U Oth Cocaine Metabols (NEGATIVE) U Cannabinoids Screen (NEGATIVE) Laboratory Results - last 24 hr 12/02/17 12/02/17 12/02/17 18:11 18:37 18:37 WBC 10.8 RBC 4.52 Hgb 10.5 L Hct 33.0 L MCV 72.9 L MCH 23.2 L MCHC 31.8 L RDW 15.8 H Plt Count 252 MPV 8.1 Neut % (Auto) 77.7 H Lymph % (Auto) 17.1 L Lea % (Auto) 4.5 Eos % (Auto) 0.2 Baso % (Auto) 0.5 Neut # (Auto) 8.4 H Lymph # (Auto) 1.8 Lea # (Auto) 0.5 Eos # (Auto) 0.0 Baso # (Auto) 0.1 PT 11.2 INR 1.0 Sodium Potassium Chloride Carbon Dioxide Anion Gap BUN Creatinine Est GFR ( Amer) Est GFR (Non-Af Amer) POC Glucose (mg/dL) 167 H Random Glucose Hemoglobin A1c Calcium Phosphorus Magnesium Total Bilirubin AST ALT Alkaline Phosphatase Total Creatine Kinase CK-MB (Mass) Troponin I NT-Pro-B Natriuret Pep Total Protein Albumin Globulin Albumin/Globulin Ratio Triglycerides Cholesterol LDL Cholesterol Direct HDL Cholesterol Free T4 TSH 3rd Generation Urine Color Urine Clarity Urine pH Ur Specific Ramona Urine Protein Urine Glucose (UA) Urine Ketones Urine Blood Urine Nitrate Urine Bilirubin Urine Urobilinogen Ur Leukocyte Esterase Urine WBC (Auto) Urine RBC (Auto) Urine Bacteria Urine Opiates Screen Urine Methadone Screen Ur Barbiturates Screen Ur Phencyclidine Scrn Ur Amphetamines Screen U Benzodiazepines Scrn U Oth Cocaine Metabols U Cannabinoids Screen 12/02/17 12/02/17 12/02/17 18:37 18:37 20:28 WBC RBC Hgb Hct MCV MCH MCHC RDW Plt Count MPV Neut % (Auto) Lymph % (Auto) Lea % (Auto) Eos % (Auto) Baso % (Auto) Neut # (Auto) Lymph # (Auto) Lea # (Auto) Eos # (Auto) Baso # (Auto) PT INR Sodium 138 Potassium 8.3 H* Chloride 97 L Carbon Dioxide 31 H Anion Gap 19 BUN 22 H Creatinine 1.0 Est GFR ( Amer) > 60 Est GFR (Non-Af Amer) 53 POC Glucose (mg/dL) Random Glucose 167 H Hemoglobin A1c Calcium 9.0 Phosphorus Magnesium Total Bilirubin 0.6 AST 177 H ALT 161 H Alkaline Phosphatase 89 Total Creatine Kinase CK-MB (Mass) Troponin I < 0.0120 NT-Pro-B Natriuret Pep 696 Total Protein 7.6 Albumin 4.2 Globulin 3.4 Albumin/Globulin Ratio 1.2 Triglycerides Cholesterol LDL Cholesterol Direct HDL Cholesterol Free T4 1.82 TSH 3rd Generation 2.19 Urine Color Urine Clarity Urine pH Ur Specific Ramona Urine Protein Urine Glucose (UA) Urine Ketones Urine Blood Urine Nitrate Urine Bilirubin Urine Urobilinogen Ur Leukocyte Esterase Urine WBC (Auto) Urine RBC (Auto) Urine Bacteria Urine Opiates Screen Urine Methadone Screen Ur Barbiturates Screen Ur Phencyclidine Scrn Ur Amphetamines Screen U Benzodiazepines Scrn U Oth Cocaine Metabols U Cannabinoids Screen 12/02/17 12/02/17 12/02/17 20:28 23:19 23:33 WBC RBC Hgb Hct MCV MCH MCHC RDW Plt Count MPV Neut % (Auto) Lymph % (Auto) Lea % (Auto) Eos % (Auto) Baso % (Auto) Neut # (Auto) Lymph # (Auto) Lea # (Auto) Eos # (Auto) Baso # (Auto) PT INR Sodium Potassium Chloride Carbon Dioxide Anion Gap BUN Creatinine Est GFR ( Amer) Est GFR (Non-Af Amer) POC Glucose (mg/dL) 194 H Random Glucose Hemoglobin A1c Calcium Phosphorus Magnesium Total Bilirubin AST ALT Alkaline Phosphatase Total Creatine Kinase CK-MB (Mass) Troponin I NT-Pro-B Natriuret Pep Total Protein Albumin Globulin Albumin/Globulin Ratio Triglycerides Cholesterol LDL Cholesterol Direct HDL Cholesterol Free T4 TSH 3rd Generation Urine Color Colorless Urine Clarity Clear Urine pH 8.0 Ur Specific Ramona 1.005 Urine Protein Negative Urine Glucose (UA) 1+ Urine Ketones Negative Urine Blood Negative Urine Nitrate Negative Urine Bilirubin Negative Urine Urobilinogen Normal Ur Leukocyte Esterase Neg Urine WBC (Auto) 1 Urine RBC (Auto) 3 Urine Bacteria Rare Urine Opiates Screen Negative Urine Methadone Screen Negative Ur Barbiturates Screen Negative Ur Phencyclidine Scrn Negative Ur Amphetamines Screen Negative U Benzodiazepines Scrn Negative U Oth Cocaine Metabols Negative U Cannabinoids Screen Negative 12/02/17 12/03/17 12/03/17 23:33 00:22 05:01 WBC RBC Hgb Hct MCV MCH MCHC RDW Plt Count MPV Neut % (Auto) Lymph % (Auto) Lea % (Auto) Eos % (Auto) Baso % (Auto) Neut # (Auto) Lymph # (Auto) Lea # (Auto) Eos # (Auto) Baso # (Auto) PT INR Sodium 142 Potassium 4.5 Chloride 97 L Carbon Dioxide 34 H Anion Gap 16 BUN 21 H Creatinine 0.9 Est GFR ( Amer) > 60 Est GFR (Non-Af Amer) 60 POC Glucose (mg/dL) 254 H Random Glucose 210 H Hemoglobin A1c Calcium 9.5 Phosphorus 3.1 Magnesium 2.4 H Total Bilirubin 0.5 AST 335 H D ALT 295 H D Alkaline Phosphatase 87 Total Creatine Kinase 89 CK-MB (Mass) 1.02 Troponin I < 0.0120 NT-Pro-B Natriuret Pep Total Protein 7.3 Albumin 4.2 Globulin 3.1 Albumin/Globulin Ratio 1.4 Triglycerides Cholesterol LDL Cholesterol Direct HDL Cholesterol Free T4 TSH 3rd Generation 1.49 Urine Color Urine Clarity Urine pH Ur Specific Ramona Urine Protein Urine Glucose (UA) Urine Ketones Urine Blood Urine Nitrate Urine Bilirubin Urine Urobilinogen Ur Leukocyte Esterase Urine WBC (Auto) Urine RBC (Auto) Urine Bacteria Urine Opiates Screen Urine Methadone Screen Ur Barbiturates Screen Ur Phencyclidine Scrn Ur Amphetamines Screen U Benzodiazepines Scrn U Oth Cocaine Metabols U Cannabinoids Screen 12/03/17 12/03/17 12/03/17 06:21 06:21 07:46 WBC 7.6 RBC 3.96 Hgb 9.4 L Hct 28.8 L MCV 72.9 L MCH 23.8 L MCHC 32.6 L RDW 16.3 H Plt Count 240 MPV 8.8 Neut % (Auto) 78.0 H Lymph % (Auto) 12.2 L Lea % (Auto) 9.4 Eos % (Auto) 0.1 Baso % (Auto) 0.3 Neut # (Auto) 5.9 Lymph # (Auto) 0.9 L Lea # (Auto) 0.7 Eos # (Auto) 0.0 Baso # (Auto) 0.0 PT INR Sodium 143 Potassium 3.5 L Chloride 97 L Carbon Dioxide 34 H Anion Gap 16 BUN 17 Creatinine 0.8 Est GFR ( Amer) > 60 Est GFR (Non-Af Amer) > 60 POC Glucose (mg/dL) Random Glucose 256 H Hemoglobin A1c 7.1 H Calcium 9.0 Phosphorus 3.9 Magnesium 2.3 Total Bilirubin 0.4 AST 220 H D ALT 260 H Alkaline Phosphatase 81 Total Creatine Kinase 77 CK-MB (Mass) 0.63 Troponin I < 0.0120 NT-Pro-B Natriuret Pep Total Protein 7.1 Albumin 4.0 Globulin 3.1 Albumin/Globulin Ratio 1.3 Triglycerides 46 Cholesterol 137 LDL Cholesterol Direct 64 HDL Cholesterol 52 Free T4 TSH 3rd Generation Urine Color Urine Clarity Urine pH Ur Specific Ramona Urine Protein Urine Glucose (UA) Urine Ketones Urine Blood Urine Nitrate Urine Bilirubin Urine Urobilinogen Ur Leukocyte Esterase Urine WBC (Auto) Urine RBC (Auto) Urine Bacteria Urine Opiates Screen Urine Methadone Screen Ur Barbiturates Screen Ur Phencyclidine Scrn Ur Amphetamines Screen U Benzodiazepines Scrn U Oth Cocaine Metabols U Cannabinoids Screen 12/03/17 11:22 WBC RBC Hgb Hct MCV MCH MCHC RDW Plt Count MPV Neut % (Auto) Lymph % (Auto) Lea % (Auto) Eos % (Auto) Baso % (Auto) Neut # (Auto) Lymph # (Auto) Lea # (Auto) Eos # (Auto) Baso # (Auto) PT INR Sodium Potassium Chloride Carbon Dioxide Anion Gap BUN Creatinine Est GFR ( Amer) Est GFR (Non-Af Amer) POC Glucose (mg/dL) 143 H Random Glucose Hemoglobin A1c Calcium Phosphorus Magnesium Total Bilirubin AST ALT Alkaline Phosphatase Total Creatine Kinase CK-MB (Mass) Troponin I NT-Pro-B Natriuret Pep Total Protein Albumin Globulin Albumin/Globulin Ratio Triglycerides Cholesterol LDL Cholesterol Direct HDL Cholesterol Free T4 TSH 3rd Generation Urine Color Urine Clarity Urine pH Ur Specific [place] Urine Protein Urine Glucose (UA) Urine Ketones Urine Blood Urine Nitrate Urine Bilirubin Urine Urobilinogen Ur Leukocyte Esterase Urine WBC (Auto) Urine RBC (Auto) Urine Bacteria Urine Opiates Screen Urine Methadone Screen Ur Barbiturates Screen Ur Phencyclidine Scrn Ur Amphetamines Screen U Benzodiazepines Scrn U Oth Cocaine Metabols U Cannabinoids Screen EKG/Cardiology Studies: Cardiology / EKG Studies 12/02/17 18:08 ELECTROCARDIOGRAM Stat Comment: Mode Of Transportation: BED Reason For Exam: Palpations 12/02/17 18:18 ELECTROCARDIOGRAM Stat Comment: Mode Of Transportation: BED Reason For Exam: Palpations 12/02/17 18:44 ELECTROCARDIOGRAM Stat Comment: Mode Of Transportation: BED Reason For Exam: REPEAT Fingerstick Blood Sugar Results: 254 Critical Care Progress Note - Nutrition Nutrition: Nutrition Category Date Time Status Heart Healthy Diet [DIET] Diets 12/03/17 Breakfast Active Assessment/Plan - Assessment and Plan (Free Text) Assessment: Patient is an 82 year old female with PMHx of HTN, DMII, HLD who presented today for nausea, diarrhea, and dizziness. Patient was found to have potassium of 8.4. EKG showed bradycardia, does not revealed Peaked T waves and QRS not prologed. Admitted to the ICU for closer monitoring, Neurology: -Patient is AAOx3 -Patient is hemodynamically stable -Will downgrade to Med/Surg today Cardiology: -Troponins negative x 3 -Bicarb drip discontinued, dopamine off -Echo ordered, f/u report -Cardiology on consult, Dr Munroe, help appreciated -Hx of HTN, will hold ARB secondary to hyperkalemia Respiratory: No acute issues at this time GI: -Patient presented with nausea/vomiting/diarrhea -States that symptoms have resolved -F/U fecal leukocytes -Abnormal LFTs, Hepatitis panel and abdominal US ordered -Consider GI consult Heme/Onc: -Patient is anemic, unclear why -Stool occult ordered Renal: -Patient takes sodium chloride tabs at home, unsure why -Nephrology consulted, help appreciated Endocrine: -Patient with history of DM -Hgb A1C 7.1 -Contine low dose ISS/accuchecks ACHS GI/DVT ppx: -No GI ppx indicated at this time -Heparin 5000U SQ Q8H <Adithya Grier - Last Filed: 12/05/17 14:00> CCU Objective - Vital Signs / Intake & Output Intake and Output (Last 8hrs): Intake & Output 12/04/17 12/05/17 12/05/17 22:59 06:59 14:59 Intake Total 270 100 300 Output Total 800 1800 150 Balance -530 -1700 150 Weight 144 lb Intake: Intake, IV Amount 0 0 0 Right Hand 0 0 0 Oral 270 100 300 Output: Urine 800 1800 150 Urine, Voided 800 1800 150 Other: # Voids Urine, Voided 0 1 # Bowel Movements 0 0 0 - Patient Studies Lab Studies: Microbiology Studies 12/02/17 21:00 Urine Culture - Final Urine,Catheterized Enterobacter Cloacae Ssp Cloac 12/02/17 22:20 Stool Culture - Final Stool NO SALMONELLA, SHIGELLA OR CAMPYLOBACTER ISOLATED. 12/02/17 21:35 MRSA Culture (Admit) - Final Nose MRSA NOT DETECTED Lab Studies 12/05/17 12/05/17 12/05/17 Range/Units 07:17 06:24 06:24 WBC 7.5 (4.8-10.8) K/uL RBC 3.87 (3.80-5.20) Mil/uL Hgb 9.3 L (11.0-16.0) g/dL Hct 28.7 L (34.0-47.0) % MCV 74.2 L (81.0-99.0) fL MCH 24.0 L (27.0-31.0) pg MCHC 32.4 L (33.0-37.0) g/dL RDW 15.9 H (11.5-14.5) % Plt Count 206 (130-400) K/uL MPV 9.0 (7.2-11.7) fL Neut % (Auto) 51.5 (50.0-75.0) % Lymph % (Auto) 36.3 (20.0-40.0) % Lea % (Auto) 8.7 (0.0-10.0) % Eos % (Auto) 2.7 (0.0-4.0) % Baso % (Auto) 0.8 (0.0-2.0) % Neut # (Auto) 3.9 (1.8-7.0) K/uL Lymph # (Auto) 2.7 (1.0-4.3) K/uL Lea # (Auto) 0.6 (0.0-0.8) K/uL Eos # (Auto) 0.2 (0.0-0.7) K/uL Baso # (Auto) 0.1 (0.0-0.2) K/uL Sodium 135 (132-148) mmol/L Potassium 4.3 (3.6-5.2) mmol/L Chloride 100 (98-107) mmol/L Carbon Dioxide 24 (22-30) mmol/L Anion Gap 15 (10-20) BUN 14 (7-17) mg/dL Creatinine 0.8 (0.7-1.2) mg/dL Est GFR ( Amer) > 60 Est GFR (Non-Af Amer) > 60 POC Glucose (mg/dL) 160 H (65-110) mg/dL Random Glucose 124 H (65-105) mg/dL Calcium 8.4 L (8.6-10.4) mg/dl Phosphorus 3.1 (2.5-4.5) mg/dL Magnesium 1.9 (1.6-2.3) mg/dL Total Bilirubin 0.5 (0.2-1.3) mg/dL AST 61 H (14-36) U/L ALT 134 H (9-52) U/L Alkaline Phosphatase 61 (38-126) U/L Total Protein 6.3 (6.3-8.3) g/dL Albumin 3.4 L (3.5-5.0) g/dL Globulin 2.9 (2.2-3.9) gm/dL Albumin/Globulin Ratio 1.2 (1.0-2.1) 12/04/17 12/04/17 12/04/17 Range/Units 21:14 20:57 16:09 WBC (4.8-10.8) K/uL RBC (3.80-5.20) Mil/uL Hgb (11.0-16.0) g/dL Hct (34.0-47.0) % MCV (81.0-99.0) fL MCH (27.0-31.0) pg MCHC (33.0-37.0) g/dL RDW (11.5-14.5) % Plt Count (130-400) K/uL MPV (7.2-11.7) fL Neut % (Auto) (50.0-75.0) % Lymph % (Auto) (20.0-40.0) % Lea % (Auto) (0.0-10.0) % Eos % (Auto) (0.0-4.0) % Baso % (Auto) (0.0-2.0) % Neut # (Auto) (1.8-7.0) K/uL Lymph # (Auto) (1.0-4.3) K/uL Lea # (Auto) (0.0-0.8) K/uL Eos # (Auto) (0.0-0.7) K/uL Baso # (Auto) (0.0-0.2) K/uL Sodium 134 (132-148) mmol/L Potassium 4.2 (3.6-5.2) mmol/L Chloride 97 L (98-107) mmol/L Carbon Dioxide 27 (22-30) mmol/L Anion Gap 14 (10-20) BUN 12 (7-17) mg/dL Creatinine 1.0 (0.7-1.2) mg/dL Est GFR ( Amer) > 60 Est GFR (Non-Af Amer) 53 POC Glucose (mg/dL) 136 H 113 H (65-110) mg/dL Random Glucose 157 H (65-105) mg/dL Calcium 8.7 (8.6-10.4) mg/dl Phosphorus (2.5-4.5) mg/dL Magnesium 1.8 (1.6-2.3) mg/dL Total Bilirubin 0.4 (0.2-1.3) mg/dL AST 76 H D (14-36) U/L ALT 161 H (9-52) U/L Alkaline Phosphatase 63 (38-126) U/L Total Protein 6.7 (6.3-8.3) g/dL Albumin 3.6 (3.5-5.0) g/dL Globulin 3.0 (2.2-3.9) gm/dL Albumin/Globulin Ratio 1.2 (1.0-2.1) Laboratory Results - last 24 hr 12/04/17 12/04/17 12/04/17 16:09 20:57 21:14 WBC RBC Hgb Hct MCV MCH MCHC RDW Plt Count MPV Neut % (Auto) Lymph % (Auto) Lea % (Auto) Eos % (Auto) Baso % (Auto) Neut # (Auto) Lymph # (Auto) Lea # (Auto) Eos # (Auto) Baso # (Auto) Sodium 134 Potassium 4.2 Chloride 97 L Carbon Dioxide 27 Anion Gap 14 BUN 12 Creatinine 1.0 Est GFR ( Amer) > 60 Est GFR (Non-Af Amer) 53 POC Glucose (mg/dL) 113 H 136 H Random Glucose 157 H Calcium 8.7 Phosphorus Magnesium 1.8 Total Bilirubin 0.4 AST 76 H D ALT 161 H Alkaline Phosphatase 63 Total Protein 6.7 Albumin 3.6 Globulin 3.0 Albumin/Globulin Ratio 1.2 12/05/17 12/05/17 12/05/17 06:24 06:24 07:17 WBC 7.5 RBC 3.87 Hgb 9.3 L Hct 28.7 L MCV 74.2 L MCH 24.0 L MCHC 32.4 L RDW 15.9 H Plt Count 206 MPV 9.0 Neut % (Auto) 51.5 Lymph % (Auto) 36.3 Lea % (Auto) 8.7 Eos % (Auto) 2.7 Baso % (Auto) 0.8 Neut # (Auto) 3.9 Lymph # (Auto) 2.7 Lea # (Auto) 0.6 Eos # (Auto) 0.2 Baso # (Auto) 0.1 Sodium 135 Potassium 4.3 Chloride 100 Carbon Dioxide 24 Anion Gap 15 BUN 14 Creatinine 0.8 Est GFR ( Amer) > 60 Est GFR (Non-Af Amer) > 60 POC Glucose (mg/dL) 160 H Random Glucose 124 H Calcium 8.4 L Phosphorus 3.1 Magnesium 1.9 Total Bilirubin 0.5 AST 61 H ALT 134 H Alkaline Phosphatase 61 Total Protein 6.3 Albumin 3.4 L Globulin 2.9 Albumin/Globulin Ratio 1.2 Critical Care Progress Note - Nutrition Nutrition: Nutrition Category Date Time Status Consistent Carbohydrate [DIET] Diets 12/03/17 Dinner Active Attending/Attestation - Attestation I have personally seen and examined this patient.: Yes I have fully participated in the care of the patient.: Yes I have reviewed all pertinent clinical information: Yes Notes (Text): 12/03/17 14:00 pt is seen examined evaluated agree with resident note
[2017-12-03 14:20] LABS: HEPATITIS B SURFACE AG Negative (NEGATIVE)
[2017-12-03 14:27] LABS: HEPATITIS A IGM NEGATIVE (NEGATIVE); HEPATITIS B CORE AB NEGATIVE (NEGATIVE)
[2017-12-03 14:38] LABS: HEPATITIS C ANTIBODY NEGATIVE (NEGATIVE)
[2017-12-03 15:56] LABS: RAPID PLASMA REAGIN REACTIVE (NONREACTIVE)
--- NOTE | 2017-12-03 19:12 | CARD ---
APPROVED REPORT EXAM: Two-dimensional and M-mode echocardiogram with Doppler and color Doppler. Other Information Quality : GoodRhythm : INDICATION Syncope RISK FACTORS Hypertension Hyperlipidemia 2D DIMENSIONS IVSd1.1 (0.7-1.1cm)LVDd3.9 (3.9-5.9cm) PWd1.0 (0.7-1.1cm)LVDs2.6 (2.5-4.0cm) FS (%) 33.1 %LVEF (%)62.4 (>50%) M-Mode DIMENSIONS Left Atrium (MM)3.96 (2.5-4.0cm)Aortic Root3.30 (2.2-3.7cm) Aortic Cusp Exc.1.99 (1.5-2.0cm) Aortic Valve AI P 1/2 Mcnd587th Mitral Valve MV E Hgzvjjod701.4cm/sMV A Vpkbdfpg299.3cm/sE/A ratio0.9 TDI E/Lateral E'0.0E/Medial E'0.0 Tricuspid Valve TR Peak Pwxmfyel129hk/sTR Peak Gr.[id number] LEFT VENTRICLE The left ventricle is normal size. There is normal left ventricular wall thickness. The left ventricular function is normal. The left ventricular ejection fraction is within the normal range. There is normal LV segmental wall motion. Transmitral Doppler flow pattern is abnormal. RIGHT VENTRICLE The right ventricle is normal size. ATRIA The left atrium size is normal. The right atrium size is normal. AORTIC VALVE The aortic valve is normal in structure. MITRAL VALVE Mitral regurgitation is mild. TRICUSPID VALVE There is mild to moderate tricuspid regurgitation. GREAT VESSELS The aortic root is mildly enlarged. <Conclusion> Normal LV systolic function. Diastolic dysfunction. Borderline dilated aortic root. Mild MR. Mild TR.
[2017-12-04 05:45] LABS: BASO % 0.4 % (0.0-2.0); EOS # 0.2 K/uL (0.0-0.7); EOS % 2.2 % (0.0-4.0); HEMOGLOBIN 9.1 g/dL (11.0-16.0); LYMPH # 2.6 K/uL (1.0-4.3); LYMPH % 31.9 % (20.0-40.0); MEAN CORPUSCULAR HEMOGLOBIN 23.5 pg (27.0-31.0); MEAN CORPUSCULAR HGB CONC 32.3 g/dL (33.0-37.0); MEAN PLATELET VOLUME 8.2 fL (7.2-11.7); MONO # 0.6 K/uL (0.0-0.8); MONO % 6.9 % (0.0-10.0); NEUT # 4.7 K/uL (1.8-7.0); NEUT % 58.6 % (50.0-75.0); RBC 3.86 Mil/uL (3.80-5.20); RED CELL DISTRIBUTION WIDTH 15.9 % (11.5-14.5)
[2017-12-04 06:20] LABS: ALB/GLOB RATIO 1.2 (1.0-2.1); ALBUMIN 3.4 g/dL (3.5-5.0); ALT/SGPT 182 U/L (9-52); AST/SGOT 103 U/L (14-36); BLOOD UREA NITROGEN 12 mg/dL (7-17); CALCIUM 8.2 mg/dl (8.6-10.4); GFR AFRICAN-AMERICAN > 60; GFR NON-AFRICAN AMERICAN > 60
--- NOTE | 2017-12-04 07:05 | CP.PCM.PN ---
<ChunOsiris - Last Filed: 12/04/17 11:47> Subjective - Date & Time of Evaluation Date of Evaluation: 12/04/17 Time of Evaluation: 07:05 - Subjective Subjective: Progress Note for Dr. Oconnor Patient seen and examined at bedside. Patient states she's not having any issues with chest pain or palpitations. Patient states her hand haider a little with potassium administration. Patient admits to constipation at home and said she had diarrhea on Sunday 12/03. No acute events overnight. Patient denies fever, chills, nausea, vomiting, diarrhea, fatigue, headache. Objective - Vital Signs/Intake and Output Vital Signs (last 24 hours): Temp Pulse Resp BP Pulse Ox 98.5 F 61 16 160/39 H 97 12/04/17 04:00 12/04/17 04:17 12/04/17 04:17 12/04/17 04:17 12/03/17 14:12 Intake and Output: 12/04/17 12/04/17 06:59 18:59 Intake Total 300 Output Total 2100 Balance -1800 - Medications Medications: Current Medications Heparin Sodium (Porcine) (Heparin) 5,000 units SC Q8 [facility] Last Admin: 12/04/17 05:56 Dose: 5,000 units Potassium Chloride (Potassium Chloride 20 Meq/100 Ml) 20 meq in 100 mls @ 50 mls/hr IVPB Q2 [facility] Stop: 12/04/17 13:59 Insulin Aspart (Novolog) 0 unit SC ACHS [facility] PRN Reason: Protocol Last Admin: 12/03/17 22:07 Dose: Not Given Pneumococcal Polyvalent Vaccine (Pneumovax 23 Vaccine) 0.5 ml IM .ONCE ONE Stop: 12/04/17 10:01 Potassium Chloride (K-Dur 20 Meq Er Tab) 20 meq PO Q2H [facility] Stop: 12/04/17 09:01 Vitamin A (Vitamin A & D Oint Ud Foilpak) 0.5 ea TOP Q4 PRN PRN Reason: For Dry Lips Last Admin: 12/03/17 10:05 Dose: 0.5 ea - Labs Labs: 12/04/17 05:39 12/04/17 05:39 PT 11.2 SECONDS (9.7-12.2) 12/02/17 18:37 INR 1.0 12/02/17 18:37 - Constitutional Appears: Non-toxic, No Acute Distress - Head Exam Head Exam: ATRAUMATIC, NORMAL INSPECTION, NORMOCEPHALIC - Eye Exam Eye Exam: EOMI, Normal appearance - ENT Exam ENT Exam: Mucous Membranes Moist, Normal Exam - Neck Exam Neck Exam: Full ROM, Normal Inspection - Respiratory Exam Respiratory Exam: Clear to Ausculation Bilateral, NORMAL BREATHING PATTERN. absent: Accessory Muscle Use - Cardiovascular Exam Cardiovascular Exam: REGULAR RHYTHM, +S1, +S2 - GI/Abdominal Exam GI & Abdominal Exam: Distended, Soft. absent: Tenderness - Extremities Exam Extremities Exam: Full ROM. absent: Pedal Edema - Back Exam Back Exam: Full ROM, NORMAL INSPECTION - Neurological Exam Neurological Exam: Alert, Awake, CN II-XII Intact, Oriented x3 - Psychiatric Exam Psychiatric exam: Normal Affect, Normal Mood - Skin Skin Exam: Dry, Intact, Normal Color Assessment and Plan - Assessment and Plan (Free Text) Assessment: 82F with past medical history of HTN, T2DM presents with hyperkalemia. 1. Electrolyte abnormalities 12/02: 8.5 12/03: Improved. The K is now 3.5, she is ambulating in room. Reports better. -Potassium 8.3 on admission -Patient given, calcium gluconate, sodium bicarb, lasix, albuterol, kayexalate, and insulin in ED Nephro Consult: Dr. Daniels 12/04 hypokalemia, repleted 2. 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 We are pending echo. The troponins have been negative Cardiology Consult: Dr. Munroe 3. HTN 12/03: Systolic in the 140s. Holding FILI/ARB secondary to hyperkalemia cozaar 100mg PO QD per Dr. Daniels 4. DMII Diet: consistent carbohydrate diet accuchecks Q6H Lipid: TG 46, Cholesterol 137, LDL 64, HDL 52 6. Prophylaxis Heparin 5000 u sc q8h SCD discussed with Dr. Sandrita Mccollum DO PGY1 <Herson Oconnor H - Last Filed: 12/04/17 13:12> Objective - Vital Signs/Intake and Output Vital Signs (last 24 hours): Temp Pulse Resp BP Pulse Ox 98.0 F 77 14 170/61 H 97 12/04/17 12:00 12/04/17 12:00 12/04/17 12:00 12/04/17 11:57 12/04/17 12:00 Intake and Output: 12/04/17 12/04/17 06:59 18:59 Intake Total 300 550 Output Total 2100 650 Balance -1800 -100 - Medications Medications: Current Medications Amlodipine Besylate (Norvasc) 5 mg PO DAILY [facility] Last Admin: 12/04/17 11:21 Dose: 5 mg Heparin Sodium (Porcine) (Heparin) 5,000 units SC Q8 [facility] Last Admin: 12/04/17 05:56 Dose: 5,000 units Insulin Aspart (Novolog) 0 unit SC ACHS [facility] PRN Reason: Protocol Last Admin: 12/04/17 12:13 Dose: 2 unit Losartan Potassium (Cozaar) 100 mg PO DAILY [facility] Potassium Chloride (K-Dur 20 Meq Er Tab) 20 meq PO Q2H [facility] Stop: 12/04/17 14:01 Last Admin: 12/04/17 12:55 Dose: 20 meq Vitamin A (Vitamin A & D Oint Ud Foilpak) 0.5 ea TOP Q4 PRN PRN Reason: For Dry Lips Last Admin: 12/03/17 10:05 Dose: 0.5 ea - Labs Labs: 12/04/17 05:39 12/04/17 12:15 PT 11.2 SECONDS (9.7-12.2) 12/02/17 18:37 INR 1.0 12/02/17 18:37 Attending/Attestation - Attestation I have personally seen and examined this patient.: Yes I have fully participated in the care of the patient.: Yes I have reviewed all pertinent clinical information, including history, physical exam and plan: Yes Notes (Text): 12/04/17 13:09 Medical attending: Patient was seen and examined by me. Agree with the above note by the resident. The patient was not in any acute distress when I saw her. Her family members present in the room - the patient was ok with this. The patient looked much better according to the family members in the room. She did not look leathergic or weak as when she was being brought to the hospital The patient had a low K today - it was 2.6. She denied chest pain, denied palpitations. We are repleting it today with oral and IV. If her K is stable tommorow we will consider discharging to home. thank you Herson oconnor
[2017-12-04] MEDS: Potassium Chloride 20 mEq ER Tab PO SCH ×4 (07:47→14:31)
[2017-12-04] MEDS: (Novolog) Insulin Aspart, Recombinant 100 u/ml 10 ml vial SC SCH ×4 (07:48→22:00)
[2017-12-04] MEDS ORDERED: Pneumococcal 23-Valent Vaccine IM ONE (10:00)
--- NOTE | 2017-12-04 11:17 | CP.PCM.PN ---
Subjective - Date & Time of Evaluation Date of Evaluation: 12/04/17 Time of Evaluation: 11:16 - Subjective Subjective: Nephrology Consultation Note: Assessment: Stable Hyperkalemia ? lab/sampling error now with hypokalemia alkalosis, abnormal LFT Junctional Rhythm HTN (I12.0) Diabetes Mellitus Plan No acute need for renal replacement therapy at this time. normal renal function doubt the accuracy of initial K level considering normal renal function without severe acidosis/hyperglycemia Hypertension control with meds as ordered. resume ARB and norvasc supplement KDUR stop sodium chloride tabs pt advised to abstain from natural supplements Dose meds/antibiotics for normal GFR. Glycemic control Further work up/management as per primary team Thanks for allowing me to participate in care of your patient. Will follow further on as needed basis. Please call if any Qs. d/w team Dr Dorian Daniels Office: [phone] Chief Complaint; dizziness HPI: Pt is a 82 F with hx of diabetes Mellitus ( years), hypertension (years), Hyperlipidemia presented with complaints of nausea/vomitting and dizziness. she was found to have junctional rhythm, treated with glucagon, dopamine as pt was on beta-angus. also found to have hyperkalemia K 8.3 which was also medically treated. renal consult for hyperkalemia eval. Denies OTC/herbal meds or NSAIDs No recent iodinated contrast exposure. pt feels in usual health at this time ROS: Cardiovascular: No chest pain. Pulmonary: No shortness of breath Gastrointestinal: denies abdominal pain No nausea. No vomiting at present. Genitourinary: No pain while urinating. Denies blood in urine. All other negative except as mentioned in HPI Physical Examination: family bedside General Appearance: Comfortable, in no acute respiratory distress, co-operative . Vitals reviewed and noted as below Head; Atraumatic, normocephalic ENT: no ulcers no thrush. Tongue is midline. Oropharynx: no rash or ulcers. EYES: Pupils are equal, round and reactive to light accommodation. Eye muscles and extraocular movement intact. Sclera is anicteric. Neck; supple no lymphadenopathy, no thyromegaly or bruit Lungs: Normal respiratory rate/effort. Breath sounds bilateral equal and clear Heart: Normal rate. s1s2 normal. No rub or gallop. Extremities: no edema. No varicose veins Neurological: Patient is alert, awake and oriented to person, place and time. No focal deficit. Strength bilateral appropriate and equal Skin: Warm and dry. Normal turgor. No rash. Palpitation: Normal elasticity for age Abdomen: Abdomen is soft. Bowel sounds +. There is no abdominal tenderness, no guarding/rigidity no organomegaly Psych: normal insight and normal affect/mood MSK: no joint tenderness or swelling. Digits and nails normal, no deformity : kidney or bladder not palpable Labs/imaging reviewed. Past medical history, past surgical history, family history, social history, allergy reviewed and noted as below Family hx: no hx of CKD. Rest non-contributory UA: no blood or protein. SG 1.005 pH 8.0 Objective - Vital Signs/Intake and Output Vital Signs (last 24 hours): Temp Pulse Resp BP Pulse Ox 98.3 F 72 18 167/52 H 98 12/04/17 10:00 12/04/17 09:12 12/04/17 09:12 12/04/17 07:12 12/04/17 10:00 Intake and Output: 12/04/17 12/04/17 06:59 18:59 Intake Total 300 350 Output Total 2100 650 Balance -1800 -300 - Medications Medications: Current Medications Amlodipine Besylate (Norvasc) 5 mg PO DAILY [facility] Heparin Sodium (Porcine) (Heparin) 5,000 units SC Q8 [facility] Last Admin: 12/04/17 05:56 Dose: 5,000 units Potassium Chloride (Potassium Chloride 20 Meq/100 Ml) 20 meq in 100 mls @ 25 mls/hr IVPB Q4 [facility] Stop: 12/04/17 19:59 Insulin Aspart (Novolog) 0 unit SC ACHS [facility] PRN Reason: Protocol Last Admin: 12/04/17 07:48 Dose: Not Given Losartan Potassium (Cozaar) 100 mg PO DAILY [facility] Vitamin A (Vitamin A & D Oint Ud Foilpak) 0.5 ea TOP Q4 PRN PRN Reason: For Dry Lips Last Admin: 12/03/17 10:05 Dose: 0.5 ea - Labs Labs: 12/04/17 05:39 12/04/17 05:39 PT 11.2 SECONDS (9.7-12.2) 12/02/17 18:37 INR 1.0 12/02/17 18:37
--- NOTE | 2017-12-04 11:43 | US ---
HISTORY: Elevated LFTs COMPARISON: None. TECHNIQUE: Sonographic evaluation of the abdomen. FINDINGS: LIVER: Measures 13.2 cm. Diffusely increased echogenicity of the liver parenchyma. Consistent with fatty infiltration. Smooth contour. No mass. No intrahepatic biliary ductal dilatation. Normal hepatopetal portal venous flow. GALLBLADDER: Unremarkable. No gallstones. COMMON BILE DUCT: Measures 6 mm. No stones. No dilatation. PANCREAS: Unremarkable as visualized. No mass. No ductal dilatation. RIGHT KIDNEY: Measures 9.1cm. Normal echogenicity. No calculus, mass, or hydronephrosis. LEFT KIDNEY: Measures 9.8cm. Normal echogenicity. No calculus or hydronephrosis. Upper pole simple cortical cyst, approximately 1.5 cm diameter. No other mass. SPLEEN: Normal in size and contour. No mass. AORTA: No aneurysmal dilatation. IVC: Unremarkable. OTHER FINDINGS: Trace ascites. IMPRESSION: Trace ascites. No evidence of biliary obstruction or cholecystitis. Incidental 1.5 cm left upper pole renal cortical cyst. Diffuse fatty infiltration of the liver.
[2017-12-04 12:37] LABS: ALB/GLOB RATIO 1.2 (1.0-2.1); ALBUMIN 3.6 g/dL (3.5-5.0); ALT/SGPT 177 U/L (9-52); AST/SGOT 99 U/L (14-36); BLOOD UREA NITROGEN 11 mg/dL (7-17); CALCIUM 8.5 mg/dl (8.6-10.4); GFR AFRICAN-AMERICAN > 60; GFR NON-AFRICAN AMERICAN > 60
--- NOTE | 2017-12-04 13:09 | CP.PCM.PN ---
<Herson Bowen - Last Filed: 12/04/17 13:55> Subjective - Date & Time of Evaluation Date of Evaluation: 12/04/17 Time of Evaluation: 07:50 - Subjective Subjective: PGY2 Cardiology Progress Note for Dr. Munroe Patient seen and examined at bedside. No acute distress. She denies chest pain or palpitations currently. She does complain of burning with administration of IV potassium. I explained to her and her daughter the importance of the medication with regard to her hear and our need to prevent arrhythmias. Both parties understood. Pt states that she would prefer PO potassium if possible. Otherwise resting comfortably. Denies f/c, headache, CP, SOB, n/v, d/c, or any additional complaints at this time. Objective - Vital Signs/Intake and Output Vital Signs (last 24 hours): Temp Pulse Resp BP Pulse Ox 98.0 F 77 14 170/61 H 97 12/04/17 12:00 12/04/17 12:00 12/04/17 12:00 12/04/17 11:57 12/04/17 12:00 Intake and Output: 12/04/17 12/04/17 06:59 18:59 Intake Total 300 550 Output Total 2100 650 Balance -1800 -100 - Medications Medications: Current Medications Amlodipine Besylate (Norvasc) 5 mg PO DAILY [facility] Last Admin: 12/04/17 11:21 Dose: 5 mg Heparin Sodium (Porcine) (Heparin) 5,000 units SC Q8 [facility] Last Admin: 12/04/17 05:56 Dose: 5,000 units Insulin Aspart (Novolog) 0 unit SC ACHS [facility] PRN Reason: Protocol Last Admin: 12/04/17 12:13 Dose: 2 unit Losartan Potassium (Cozaar) 100 mg PO DAILY [facility] Potassium Chloride (K-Dur 20 Meq Er Tab) 20 meq PO Q2H [facility] Stop: 12/04/17 14:01 Last Admin: 12/04/17 12:55 Dose: 20 meq Vitamin A (Vitamin A & D Oint Ud Foilpak) 0.5 ea TOP Q4 PRN PRN Reason: For Dry Lips Last Admin: 12/03/17 10:05 Dose: 0.5 ea - Labs Labs: 12/04/17 05:39 12/04/17 12:15 PT 11.2 SECONDS (9.7-12.2) 12/02/17 18:37 INR 1.0 12/02/17 18:37 - Additional Findings Additional findings: - Constitutional Appears: Non-toxic, No Acute Distress - Head Exam Head Exam: ATRAUMATIC, NORMAL INSPECTION, NORMOCEPHALIC - Eye Exam Eye Exam: EOMI, Normal appearance - ENT Exam ENT Exam: Mucous Membranes Moist, Normal Exam - Neck Exam Neck Exam: Full ROM, Normal Inspection - Respiratory Exam Respiratory Exam: Clear to Ausculation Bilateral, NORMAL BREATHING PATTERN. absent: Accessory Muscle Use - Cardiovascular Exam Cardiovascular Exam: REGULAR RHYTHM, +S1, +S2; absent: Murmur - GI/Abdominal Exam GI & Abdominal Exam: Distended, Soft. absent: Tenderness - Extremities Exam Extremities Exam: Full ROM. absent: Pedal Edema - Back Exam Back Exam: Full ROM, NORMAL INSPECTION - Neurological Exam Neurological Exam: Alert, Awake, CN II-XII Intact, Oriented x3 - Psychiatric Exam Psychiatric exam: Normal Affect, Normal Mood - Skin Skin Exam: Dry, Intact, Normal Color Assessment and Plan - Assessment and Plan (Free Text) Assessment: Bradycardia 12/04: HR 72 stable; BP 167/52 -no active cardiac issues -electrolyte management; f/u K q8H and replete as needed Echo- EF 62%, diastolic dysfunction, dilated aortic root, mild TR/MR. -admitted for Hyperkalemia and Junctional bradycardia -Patient received Calcium gluconate and Kexalate in ER -Continue Losartan 25mg PO qD. -EKG changes will likely resolve with K correction. Otherwise may need PPM Case Discussed with Dr. Ludwig Bowen, PGY2 <Ruben Munroe - Last Filed: 12/05/17 09:03> Objective - Vital Signs/Intake and Output Vital Signs (last 24 hours): Temp Pulse Resp BP Pulse Ox 97.8 F 67 15 143/59 L 96 12/05/17 08:00 12/05/17 08:00 12/05/17 08:00 12/05/17 07:13 12/05/17 08:00 Intake and Output: 12/05/17 12/05/17 06:59 18:59 Intake Total 150 0 Output Total 2400 150 Balance -2250 -150 - Medications Medications: Current Medications Amlodipine Besylate (Norvasc) 5 mg PO DAILY [facility] Last Admin: 12/04/17 11:21 Dose: 5 mg Heparin Sodium (Porcine) (Heparin) 5,000 units SC Q8 [facility] Last Admin: 12/05/17 07:00 Dose: 5,000 units Insulin Aspart (Novolog) 0 unit SC ACHS [facility] PRN Reason: Protocol Last Admin: 12/05/17 08:11 Dose: 1 unit Losartan Potassium (Cozaar) 100 mg PO DAILY [facility] Vitamin A (Vitamin A & D Oint Ud Foilpak) 0.5 ea TOP Q4 PRN PRN Reason: For Dry Lips Last Admin: 12/03/17 10:05 Dose: 0.5 ea - Labs Labs: 12/05/17 06:24 12/05/17 06:24 PT 11.2 SECONDS (9.7-12.2) 12/02/17 18:37 INR 1.0 12/02/17 18:37 Assessment and Plan - Assessment and Plan (Free Text) Plan: Patient seen and evaluated personally by me Agree with the plan of care as d/w the resident and as documented
[2017-12-04] MEDS ORDERED: Potassium Chloride 20 mEq ER Tab PO SCH (16:30)
--- NOTE | 2017-12-04 19:17 | CARD ---
APPROVED REPORT EKG Measurement Heart [id number] <Conclusion> Junctional rhythm Abnormal ECG
[2017-12-04 21:14] LABS: ALB/GLOB RATIO 1.2 (1.0-2.1); ALBUMIN 3.6 g/dL (3.5-5.0); ALT/SGPT 161 U/L (9-52); AST/SGOT 76 U/L (14-36); BLOOD UREA NITROGEN 12 mg/dL (7-17); CALCIUM 8.7 mg/dl (8.6-10.4); GFR AFRICAN-AMERICAN > 60; GFR NON-AFRICAN AMERICAN 53
[2017-12-05 06:32] LABS: BASO # 0.1 K/uL (0.0-0.2); BASO % 0.8 % (0.0-2.0); EOS # 0.2 K/uL (0.0-0.7); EOS % 2.7 % (0.0-4.0); HEMOGLOBIN 9.3 g/dL (11.0-16.0); LYMPH # 2.7 K/uL (1.0-4.3); LYMPH % 36.3 % (20.0-40.0); MEAN CELL VOLUME 74.2 fL (81.0-99.0); MEAN CORPUSCULAR HGB CONC 32.4 g/dL (33.0-37.0); MONO # 0.6 K/uL (0.0-0.8); MONO % 8.7 % (0.0-10.0); NEUT # 3.9 K/uL (1.8-7.0); NEUT % 51.5 % (50.0-75.0); RBC 3.87 Mil/uL (3.80-5.20); RED CELL DISTRIBUTION WIDTH 15.9 % (11.5-14.5); WHITE BLOOD COUNT 7.5 K/uL (4.8-10.8)
[2017-12-05 06:45] VITALS: RESP 15
[2017-12-05 06:56] LABS: ALB/GLOB RATIO 1.2 (1.0-2.1); ALBUMIN 3.4 g/dL (3.5-5.0); ALT/SGPT 134 U/L (9-52); AST/SGOT 61 U/L (14-36); BLOOD UREA NITROGEN 14 mg/dL (7-17); CALCIUM 8.4 mg/dl (8.6-10.4); GFR AFRICAN-AMERICAN > 60; GFR NON-AFRICAN AMERICAN > 60
--- NOTE | 2017-12-05 07:49 | CP.PCM.DIS ---
<ChunOsiris - Last Filed: 12/05/17 13:41> Provider - Provider Date of Admission: 12/02/17 20:01 Attending physician: Herson Remy DO Consults: Dr. Daniels Time Spent in preparation of Discharge (in minutes): 35 Hospital Course - Lab Results Lab Results: Micro Results 12/02/17 21:35 Nose MRSA Culture (Admit) - Final MRSA NOT DETECTED 12/02/17 21:00 Urine,Catheterized Urine Culture - Preliminary Gram Negative [place] Most Recent Lab Values WBC 7.5 K/uL (4.8-10.8) 12/05/17 06:24 RBC 3.87 Mil/uL (3.80-5.20) 12/05/17 06:24 Hgb 9.3 g/dL (11.0-16.0) L 12/05/17 06:24 Hct 28.7 % (34.0-47.0) L 12/05/17 06:24 MCV 74.2 fL (81.0-99.0) L 12/05/17 06:24 MCH 24.0 pg (27.0-31.0) L 12/05/17 06:24 MCHC 32.4 g/dL (33.0-37.0) L 12/05/17 06:24 RDW 15.9 % (11.5-14.5) H 12/05/17 06:24 Plt Count 206 K/uL (130-400) 12/05/17 06:24 MPV 9.0 fL (7.2-11.7) 12/05/17 06:24 Neut % (Auto) 51.5 % (50.0-75.0) 12/05/17 06:24 Lymph % (Auto) 36.3 % (20.0-40.0) 12/05/17 06:24 [place] % (Auto) 8.7 % (0.0-10.0) 12/05/17 06:24 Eos % (Auto) 2.7 % (0.0-4.0) 12/05/17 06:24 Baso % (Auto) 0.8 % (0.0-2.0) 12/05/17 06:24 Neut # (Auto) 3.9 K/uL (1.8-7.0) 12/05/17 06:24 Lymph # (Auto) 2.7 K/uL (1.0-4.3) 12/05/17 06:24 [place] # (Auto) 0.6 K/uL (0.0-0.8) 12/05/17 06:24 Eos # (Auto) 0.2 K/uL (0.0-0.7) 12/05/17 06:24 Baso # (Auto) 0.1 K/uL (0.0-0.2) 12/05/17 06:24 PT 11.2 SECONDS (9.7-12.2) 12/02/17 18:37 INR 1.0 12/02/17 18:37 Sodium 135 mmol/L (132-148) 12/05/17 06:24 Potassium 4.3 mmol/L (3.6-5.2) 12/05/17 06:24 Chloride 100 mmol/L (98-107) 12/05/17 06:24 Carbon Dioxide 24 mmol/L (22-30) 12/05/17 06:24 Anion Gap 15 (10-20) 12/05/17 06:24 BUN 14 mg/dL (7-17) 12/05/17 06:24 Creatinine 0.8 mg/dL (0.7-1.2) 12/05/17 06:24 Est GFR ( Amer) > 60 12/05/17 06:24 Est GFR (Non-Af Amer) > 60 12/05/17 06:24 POC Glucose (mg/dL) 160 mg/dL (65-110) H 12/05/17 07:17 Random Glucose 124 mg/dL (65-105) H 12/05/17 06:24 Hemoglobin A1c 7.1 % (4.2-6.5) H 12/03/17 06:21 Calcium 8.4 mg/dl (8.6-10.4) L 12/05/17 06:24 Phosphorus 3.1 mg/dL (2.5-4.5) 12/05/17 06:24 Magnesium 1.9 mg/dL (1.6-2.3) 12/05/17 06:24 Total Bilirubin 0.5 mg/dL (0.2-1.3) 12/05/17 06:24 AST 61 U/L (14-36) H 12/05/17 06:24 ALT 134 U/L (9-52) H 12/05/17 06:24 Alkaline Phosphatase 61 U/L (38-126) 12/05/17 06:24 Total Creatine Kinase 77 U/L (30-135) 12/03/17 06:21 CK-MB (Mass) 0.63 ng/mL (0.0-3.38) 12/03/17 06:21 Troponin I < 0.0120 ng/mL (0.00-0.120) 12/03/17 06:21 NT-Pro-B Natriuret Pep 696 pg/mL (0-900) 12/02/17 20:28 Total Protein 6.3 g/dL (6.3-8.3) 12/05/17 06:24 Albumin 3.4 g/dL (3.5-5.0) L 12/05/17 06:24 Globulin 2.9 gm/dL (2.2-3.9) 12/05/17 06:24 Albumin/Globulin Ratio 1.2 (1.0-2.1) 12/05/17 06:24 Triglycerides 46 mg/dL (0-149) 12/03/17 06:21 Cholesterol 137 mg/dL (0-199) 12/03/17 06:21 LDL Cholesterol Direct 64 mg/dL (0-129) 12/03/17 06:21 HDL Cholesterol 52 mg/dL (30-70) 12/03/17 06:21 Free T4 1.82 ng/dL (0.78-2.19) 12/02/17 18:37 TSH 3rd Generation 1.49 mIU/L (0.46-4.68) 12/02/17 23:33 Urine Color Colorless (YELLOW) 12/02/17 20:28 Urine Clarity Clear (Clear) 12/02/17 20:28 Urine pH 8.0 (5.0-8.0) 12/02/17 20:28 Ur Specific [place] 1.005 (1.003-1.030) 12/02/17 20:28 Urine Protein Negative mg/dL (NEGATIVE) 12/02/17 20:28 Urine Glucose (UA) 1+ mg/dL (Normal) 12/02/17 20: Urine Ketones Negative mg/dL (NEGATIVE) 12/02/17 20:28 Urine Blood Negative (NEGATIVE) 12/02/17 20:28 Urine Nitrate Negative (NEGATIVE) 12/02/17 20:28 Urine Bilirubin Negative (NEGATIVE) 12/02/17 20:28 Urine Urobilinogen Normal mg/dL (0.2-1.0) 12/02/17 20:28 Ur Leukocyte Esterase Neg Lg/uL (Negative) 12/02/17 20:28 Urine WBC (Auto) 1 /hpf (0-5) 12/02/17 20:28 Urine RBC (Auto) 3 /hpf (0-3) 12/02/17 20:28 Urine Bacteria Rare (<OCC) 12/02/17 20:28 Stool Leukocytes, Qual Negative (NEGATIVE) 12/02/17 22:21 Urine Opiates Screen Negative (NEGATIVE) 12/02/17 23:33 Urine Methadone Screen Negative (NEGATIVE) 12/02/17 23:33 Ur Barbiturates Screen Negative (NEGATIVE) 12/02/17 23:33 Ur Phencyclidine Scrn Negative (NEGATIVE) 12/02/17 23:33 Ur Amphetamines Screen Negative (NEGATIVE) 12/02/17 23:33 U Benzodiazepines Scrn Negative (NEGATIVE) 12/02/17 23:33 U Oth Cocaine Metabols Negative (NEGATIVE) 12/02/17 23:33 U Cannabinoids Screen Negative (NEGATIVE) 12/02/17 23:33 RPR Titer 1:4 (NONREACTIVE) H 12/03/17 06:21 RPR Reactive (NONREACTIVE) H 12/03/17 06:21 Hepatitis A IgM Ab Negative (NEGATIVE) 12/03/17 13:36 Hep Bs Antigen Negative (NEGATIVE) 12/03/17 13:36 Hep B Core IgM Ab Negative (NEGATIVE) 12/03/17 13:36 Hepatitis C Antibody Negative (NEGATIVE) 12/03/17 13:36 - Hospital Course Hospital Course: CC: nausea, diarrhea, dizziness HPI: Patient is an 82 y/o F with PMHx of HTN, DMII, HLD who presents today for nausea, diarrhea, and dizziness. Patient was feeling fine today and then after eating lunch became nauseous and had 4 episodes of nonbloody diarrhea. Patient felt light headed with blurry vision and weak and her daughter called 911. Patient also felt like she was unsteady on her feet and needed help to get to the bathroom. Patient has not been sick recently and has had no sick contacts. In the ER patient had one episode of vomiting. In the ER patient says she is feeling much better and says the lightheadedness and nausea have resolved. Patient denies any chest pain, shortness of breath, or abdominal pain. The past few days patient has had decreased appetite, but otherwise has felt normal. Patient has had no weight changes. Patient was recently in the [facility] from Nov 01- November 16 and felt fine while there. Hospital course Patient was found to have heart block, Dr. Munroe on board. Patient was hyperkalemic, which was corrected. Patient was given 90 of Kayexelate, 2 amps of calcium gluconate, multiple albuterol and lasix as well as IV insulin (along with dextrose). Patient was NSR on monitoring engineer at this time. Patient denied any weakness and fatigue. Patient was noted to be walking around at baseline. Patient became hypokalemic and was given potassium. Potassium was corrected and patient was stable for discharge. - Date & Time of H&P Date of H&P: 12/05/17 Time of H&P: 07:57 Discharge Exam - Head Exam Head Exam: ATRAUMATIC, NORMAL INSPECTION, NORMOCEPHALIC - Eye Exam Eye Exam: EOMI, Normal appearance Pupil Exam: NORMAL ACCOMODATION, PERRL - ENT Exam ENT Exam: Normal Exam - Respiratory Exam Respiratory Exam: Clear to PA & Lateral, NORMAL BREATHING PATTERN - Cardiovascular Exam Cardiovascular Exam: REGULAR RHYTHM, +S1, +S2 - GI/Abdominal Exam GI & Abdominal Exam: Normal Bowel Sounds, Soft - Extremities Exam Extremities exam: full ROM, normal capillary refill, pedal pulses present - Back Exam Back exam: FULL ROM - Neurological Exam Neurological exam: Alert, CN II-XII Intact, Normal Gait, Oriented x3 - Psychiatric Exam Psychiatric exam: Normal Affect, Normal Mood - Skin Skin Exam: Dry, Intact, Normal Color, Warm Discharge Plan - Discharge Medications Prescriptions: amLODIPine [Norvasc] 5 mg PO DAILY #30 tab Atorvastatin [Lipitor] 1 tab PO DAILY #30 tab Losartan [Cozaar] 100 mg PO DAILY #30 tab - Follow Up Plan Condition: CRITICAL Disposition: HOME/ ROUTINE Instructions: Syncope (DC), Syncope (GEN) Additional Instructions: Patient to go home today Patient to follow up with primary care doctor in one week for re-evaluation and necessary referrals Patient to follow up with security system analyst in one week Take cozaar 100mg QD and Norvasc 5mg QD Discontinue home blood pressure medications continue the rest of home medications <Herson Remy - Last Filed: 12/05/17 15:21> Provider - Provider Date of Admission: 12/02/17 20:01 Attending physician: Herson Remy DO Hospital Course - Lab Results Lab Results: Micro Results 12/02/17 21:00 Urine,Catheterized Urine Culture - Final Enterobacter Cloacae Ssp Cloac 12/02/17 22:20 Stool Stool Culture - Final NO SALMONELLA, SHIGELLA OR CAMPYLOBACTER ISOLATED. 12/02/17 21:35 Nose MRSA Culture (Admit) - Final MRSA NOT DETECTED Most Recent Lab Values WBC 7.5 K/uL (4.8-10.8) 12/05/17 06:24 RBC 3.87 Mil/uL (3.80-5.20) 12/05/17 06:24 Hgb 9.3 g/dL (11.0-16.0) L 12/05/17 06:24 Hct 28.7 % (34.0-47.0) L 12/05/17 06:24 MCV 74.2 fL (81.0-99.0) L 12/05/17 06:24 MCH 24.0 pg (27.0-31.0) L 12/05/17 06:24 MCHC 32.4 g/dL (33.0-37.0) L 12/05/17 06:24 RDW 15.9 % (11.5-14.5) H 12/05/17 06:24 Plt Count 206 K/uL (130-400) 12/05/17 06:24 MPV 9.0 fL (7.2-11.7) 12/05/17 06:24 Neut % (Auto) 51.5 % (50.0-75.0) 12/05/17 06:24 Lymph % (Auto) 36.3 % (20.0-40.0) 12/05/17 06:24 [place] % (Auto) 8.7 % (0.0-10.0) 12/05/17 06:24 Eos % (Auto) 2.7 % (0.0-4.0) 12/05/17 06:24 Baso % (Auto) 0.8 % (0.0-2.0) 12/05/17 06:24 Neut # (Auto) 3.9 K/uL (1.8-7.0) 12/05/17 06:24 Lymph # (Auto) 2.7 K/uL (1.0-4.3) 12/05/17 06:24 [place] # (Auto) 0.6 K/uL (0.0-0.8) 12/05/17 06:24 Eos # (Auto) 0.2 K/uL (0.0-0.7) 12/05/17 06:24 Baso # (Auto) 0.1 K/uL (0.0-0.2) 12/05/17 06:24 PT 11.2 SECONDS (9.7-12.2) 12/02/17 18:37 INR 1.0 12/02/17 18:37 Sodium 135 mmol/L (132-148) 12/05/17 06:24 Potassium 4.3 mmol/L (3.6-5.2) 12/05/17 06:24 Chloride 100 mmol/L (98-107) 12/05/17 06:24 Carbon Dioxide 24 mmol/L (22-30) 12/05/17 06:24 Anion Gap 15 (10-20) 12/05/17 06:24 BUN 14 mg/dL (7-17) 12/05/17 06:24 Creatinine 0.8 mg/dL (0.7-1.2) 12/05/17 06:24 Est GFR ( Amer) > 60 12/05/17 06:24 Est GFR (Non-Af Amer) > 60 12/05/17 06:24 POC Glucose (mg/dL) 160 mg/dL (65-110) H 12/05/17 07:17 Random Glucose 124 mg/dL (65-105) H 12/05/17 06:24 Hemoglobin A1c 7.1 % (4.2-6.5) H 12/03/17 06:21 Calcium 8.4 mg/dl (8.6-10.4) L 12/05/17 06:24 Phosphorus 3.1 mg/dL (2.5-4.5) 12/05/17 06:24 Magnesium 1.9 mg/dL (1.6-2.3) 12/05/17 06:24 Total Bilirubin 0.5 mg/dL (0.2-1.3) 12/05/17 06:24 AST 61 U/L (14-36) H 12/05/17 06:24 ALT 134 U/L (9-52) H 12/05/17 06:24 Alkaline Phosphatase 61 U/L (38-126) 12/05/17 06:24 Total Creatine Kinase 77 U/L (30-135) 12/03/17 06:21 CK-MB (Mass) 0.63 ng/mL (0.0-3.38) 12/03/17 06:21 Troponin I < 0.0120 ng/mL (0.00-0.120) 12/03/17 06:21 NT-Pro-B Natriuret Pep 696 pg/mL (0-900) 12/02/17 20:28 Total Protein 6.3 g/dL (6.3-8.3) 12/05/17 06:24 Albumin 3.4 g/dL (3.5-5.0) L 12/05/17 06:24 Globulin 2.9 gm/dL (2.2-3.9) 12/05/17 06:24 Albumin/Globulin Ratio 1.2 (1.0-2.1) 12/05/17 06:24 Triglycerides 46 mg/dL (0-149) 12/03/17 06:21 Cholesterol 137 mg/dL (0-199) 12/03/17 06:21 LDL Cholesterol Direct 64 mg/dL (0-129) 12/03/17 06:21 HDL Cholesterol 52 mg/dL (30-70) 12/03/17 06:21 Free T4 1.82 ng/dL (0.78-2.19) 12/02/17 18:37 TSH 3rd Generation 1.49 mIU/L (0.46-4.68) 12/02/17 23:33 Urine Color Colorless (YELLOW) 12/02/17 20:28 Urine Clarity Clear (Clear) 12/02/17 20:28 Urine pH 8.0 (5.0-8.0) 12/02/17 20:28 Ur Specific [place] 1.005 (1.003-1.030) 12/02/17 20:28 Urine Protein Negative mg/dL (NEGATIVE) 12/02/17 20:28 Urine Glucose (UA) 1+ mg/dL (Normal) 12/02/17 20:28 Urine Ketones Negative mg/dL (NEGATIVE) 12/02/17 20:28 Urine Blood Negative (NEGATIVE) 12/02/17 20:28 Urine Nitrate Negative (NEGATIVE) 12/02/17 20:28 Urine Bilirubin Negative (NEGATIVE) 12/02/17 20:28 Urine Urobilinogen Normal mg/dL (0.2-1.0) 12/02/17 20:28 Ur Leukocyte Esterase Neg Lg/uL (Negative) 12/02/17 20:28 Urine WBC (Auto) 1 /hpf (0-5) 12/02/17 20:28 Urine RBC (Auto) 3 /hpf (0-3) 12/02/17 20:28 Urine Bacteria Rare (<OCC) 12/02/17 20:28 Stool Leukocytes, Qual Negative (NEGATIVE) 12/02/17 22:21 Urine Opiates Screen Negative (NEGATIVE) 12/02/17 23:33 Urine Methadone Screen Negative (NEGATIVE) 12/02/17 23:33 Ur Barbiturates Screen Negative (NEGATIVE) 12/02/17 23:33 Ur Phencyclidine Scrn Negative (NEGATIVE) 12/02/17 23:33 Ur Amphetamines Screen Negative (NEGATIVE) 12/02/17 23:33 U Benzodiazepines Scrn Negative (NEGATIVE) 12/02/17 23:33 U Oth Cocaine Metabols Negative (NEGATIVE) 12/02/17 23:33 U Cannabinoids Screen Negative (NEGATIVE) 12/02/17 23:33 RPR Titer 1:4 (NONREACTIVE) H 12/03/17 06:21 RPR Reactive (NONREACTIVE) H 12/03/17 06:21 Hepatitis A IgM Ab Negative (NEGATIVE) 12/03/17 13:36 Hep Bs Antigen Negative (NEGATIVE) 12/03/17 13:36 Hep B Core IgM Ab Negative (NEGATIVE) 12/03/17 13:36 Hepatitis C Antibody Negative (NEGATIVE) 12/03/17 13:36 Attending/Attestation - Attestation I have personally seen and examined this patient.: Yes I have fully participated in the care of the patient.: Yes I have reviewed all pertinent clinical information, including history, physical exam and plan: Yes Notes (Text): Medical attending: Patient was seen and examined by me. Agree with the above note by the resident Patient was also with family members at bedside. Her K was improved today. The patient on exam was able to ambulate with us into the hallway - she did not have chest pain or shortness of breath, also denied palpitation. According to family she looked back to her baseline to them. With the family in the room, we explained to the patient to please follow up with her Primary Physician for lab check. She seems to have been taking some oral supplementation of K that was over the counter. It maybe that she needs a very small amount of additional supplement however our concern is she was taking very large amounts. thank you, Herson Remy
[2017-12-05] MEDS: (Novolog) Insulin Aspart, Recombinant 100 u/ml 10 ml vial SC SCH (08:11)
[2017-12-05 08:24] VITALS: TEMP 97.8; O2SAT 96
[2017-12-05 09:14] VITALS: BP 152/50; PULSE 76
--- NOTE | 2017-12-05 20:02 | CP.PCM.PN ---
Subjective - Date & Time of Evaluation Date of Evaluation: 12/03/17 Time of Evaluation: 16:10 - Subjective Subjective: Patient seen and evaluated Denies chest pain and dyspnea Review of Systems - Constitutional Constitutional: Weakness. absent: Chills, Fever, Weight Loss - EENT Eyes: Blurred Vision Nose/Mouth/Throat: absent: Sore Throat - Cardiovascular Cardiovascular: absent: Chest Pain, Dyspnea, Leg Edema, Palpitations - Respiratory Respiratory: absent: Cough, Wheezing, Chest Congestion - Gastrointestinal Gastrointestinal: Bloating, Diarrhea, Nausea, Vomiting. absent: Abdominal Pain , Hematochezia, Melena - Musculoskeletal Musculoskeletal: absent: Numbness, Tingling - Integumentary Integumentary: absent: Rash - Neurological Neurological: absent: Abnormal Speech Physical Exam - Constitutional Appears: Non-toxic, No Acute Distress - Head Exam Head Exam: ATRAUMATIC, NORMAL INSPECTION, NORMOCEPHALIC - Eye Exam Eye Exam: EOMI, Normal appearance - ENT Exam ENT Exam: Mucous Membranes Dry - Respiratory Exam Respiratory Exam: Clear to Auscultation Bilateral, NORMAL BREATHING PATTERN - Cardiovascular Exam Cardiovascular Exam: Bradycardia, REGULAR RHYTHM, +S1, +S2 - GI/Abdominal Exam GI & Abdominal Exam: Distended, Normal Bowel Sounds, Soft. absent: Tenderness - Extremities Exam Extremities exam: Positive for: normal inspection. Negative for: pedal edema, tenderness - Neurological Exam Neurological exam: Alert, Oriented x3 - Psychiatric Exam Psychiatric exam: Depressed ( 4 months ago), Normal Affect - Skin Skin Exam: Intact, Normal Color, Warm Objective - Vital Signs/Intake and Output Vital Signs (last 24 hours): Temp Pulse Resp BP Pulse Ox 97.8 F 76 15 152/50 H 96 12/05/17 08:00 12/05/17 09:02 12/05/17 09:02 12/05/17 09:02 12/05/17 08:00 Intake and Output: 12/05/17 12/06/17 18:59 06:59 Intake Total 300 Output Total 150 Balance 150 - Labs Labs: 12/05/17 06:24 12/05/17 06:24 PT 11.2 SECONDS (9.7-12.2) 12/02/17 18:37 INR 1.0 12/02/17 18:37 Assessment and Plan - Assessment and Plan (Free Text) Assessment: 1. Hyperkalemia 12/03: Improved. The K is now 3.5, she is ambulating in room. Reports better. -Potassium 8.3 on admission -Patient given, calcium gluconate, sodium bicarb, lasix, albuterol, kayexalate, and insulin in ED 2. Bradycardia 12/03: On telemtry monitor HR now in the 70s appears NSR. We are pending echo. The troponins have been negative She denied chest pain and shortness of breath. -Cardiology consulted, Dr. Munroe, help appreciated -patient took B angus this am, Glucagon given in ED 3. HTN 12/03: Systolic in the 140s. Holding FILI/ARB secondary to hyperkalemia 4. DMII -NPO -accuchecks q6hrs -ISS low dose 5. HLD -f/u lipid panel 6. Prophylaxis -Heparin 5000 u sc q8h
== END 2017-12-05 11:04 | disposition home or self-care (01) | DRG 309 ==
LOC: C.ER 18:08 → C.9I 20:01
PROVIDERS: ADMIT Hospitalist; ATTEND Hospitalist
DX: R00.1 Bradycardia, unspecified (principal); E87.3 Alkalosis; E87.5 Hyperkalemia; E11.9 Type 2 diabetes mellitus without complications; E78.5 Hyperlipidemia, unspecified; I10 Essential (primary) hypertension; K21.9 Gastro-esophageal reflux disease without esophagitis; R55 Syncope and collapse; E87.6 Hypokalemia; Z79.4 Long term (current) use of insulin

== ENCOUNTER 2018-04-23 07:09 | Day surgery (SDC) | payer MEDICARE, MEDICAID ==
[2018-04-23] MEDS ORDERED: Etomidate 20 mg/10ml Inj IV ONE (09:11)
--- NOTE | 2018-04-23 09:11 | CP.SDSHP ---
Same Day Surgery H & P - History Proposed Procedure: EGD Pre-Op Diagnosis: SEE NOTES - Previous Medical/Surgical History Cardiac: Hypertension Endocrine/Metabolic: Other Pain: 4.Moderate Pain - Allergies Allergies: Allergies No Known Allergies Allergy (Verified 04/23/18 07:44) - Physical Exam General Appearance: N Vital Signs: Vital Signs 04/23/18 07:20 Temperature 97.3 F L Pulse Rate 67 Respiratory 16 Rate Blood Pressure 175/62 H O2 Sat by Pulse 96 Oximetry Mental Status: Alert & Oriented x3 Neuro: WNL Heart: Other Lungs: WNL - {Optional Preform as Required} Breast: WNL Abdomen: Other Rectal: Other Integument: WNL : WNL Ortho: Other ENT: WNL - Impression Pt. Evaluated Today:Candidate for Anesthesia & Procedure: Yes - Date & Time Time: 09:11 Short Stay Discharge - Short Stay Discharge Admitting Diagnosis/Reason for Visit: DYSPEPSIA Disposition: HOME/ ROUTINE
[2018-04-23] MEDS ORDERED: Belladonna-Phenobarbital PO STA (09:12)
[2018-04-23 09:45] VITALS: PULSE 68; O2SAT 97
[2018-04-23 10:30] VITALS: BP 160/73; RESP 16; TEMP 98
== END 2018-04-23 10:20 | disposition home or self-care (01) ==
LOC: C.ENDO 07:09
PROVIDERS: ATTEND Specialist
DX: K30 Functional dyspepsia (principal); K21.0 Gastro-esophageal reflux disease with esophagitis; K44.9 Diaphragmatic hernia without obstruction or gangrene; I10 Essential (primary) hypertension
CPT/HCPCS: 43239; 82948; 88305; 88342; J2001; J2405; J2765

== ENCOUNTER 2018-04-25 08:07 | Day surgery (SDC) | payer MEDICARE, MEDICAID ==
[2018-04-25] MEDS ORDERED: Lactated Ringer's 1,000 ML IV ONE (10:43)
--- NOTE | 2018-04-25 10:44 | CP.SDSHP ---
Same Day Surgery H & P - History Proposed Procedure: COLONSCOPY Pre-Op Diagnosis: SEE NOTES - Previous Medical/Surgical History Cardiac: Hypertension Endocrine/Metabolic: Other Neuro: Backaches Misc: Other Pain: 4.Moderate Pain - Allergies Allergies: Allergies No Known Allergies Allergy (Verified 04/23/18 07:44) - Physical Exam General Appearance: N Vital Signs: Vital Signs 04/25/18 08:40 Temperature 97.2 F L Pulse Rate 84 Respiratory 20 Rate Blood Pressure 156/54 H Neuro: WNL Heart: Other Lungs: WNL GI: Other - {Optional Preform as Required} Breast: WNL Abdomen: Other Rectal: Other Integument: WNL : WNL Ortho: Other ENT: WNL - Impression Pt. Evaluated Today:Candidate for Anesthesia & Procedure: Yes - Date & Time Time: 10:44 Short Stay Discharge - Short Stay Discharge Admitting Diagnosis/Reason for Visit: CHANGE IN BOWEL HABITS Disposition: HOME/ ROUTINE
[2018-04-25] MEDS ORDERED: Propofol 10 mg/ml Inj (20 ML) ONE (10:46)
[2018-04-25] MEDS ORDERED: Belladonna-Phenobarbital PO ONE (11:40)
[2018-04-25 12:14] VITALS: TEMP 96.8; O2SAT 96
[2018-04-25 12:20] VITALS: BP 158/56; PULSE 68; RESP 16
== END 2018-04-25 12:18 | disposition home or self-care (01) ==
LOC: C.ENDO 08:07
PROVIDERS: ATTEND Specialist
DX: K58.9 Irritable bowel syndrome, unspecified (principal); R19.4 Change in bowel habit; R10.84 Generalized abdominal pain; R63.4 Abnormal weight loss; I10 Essential (primary) hypertension; K64.8 Other hemorrhoids; K64.4 Residual hemorrhoidal skin tags; K57.30 Diverticulosis of large intestine without perforation or abscess without bleeding
CPT/HCPCS: 45380; 82948; 88305; J2704; J7120

== ENCOUNTER 2018-05-19 17:49 | Emergency (ER) | payer MEDICARE, MEDICAID ==
[2018-05-19 18:04] VITALS: RESP 18; O2SAT 98
[2018-05-19] MEDS ORDERED: Sodium Chloride 0.9% 500 ML IV ONE (19:44)
--- NOTE | 2018-05-19 19:44 | C.PDOC ---
History Of Present Illness 83 year old female presents to the ER complaining of generalized weakness, decreased appetite, and decreased PO intake for the past 1 week, associated with abdominal discomfort. Patient denies actual abdominal pain, but feels nausea and some "gurgling" since yesterday. Patient's last bowel movement was 2 days ago, and she admits to a Hx of chronic constipation. Patient denies chest pain, SOB, vomiting, diarrhea, dysuria/hematuria. Time Seen by Provider: 05/19/18 19:07 Chief Complaint (Nursing): Weakness/Neurological Deficit History Per: Patient History/Exam Limitations: no limitations Onset/Duration Of Symptoms: Days Current Symptoms Are (Timing): Still Present Seizure Or Post-ictal Symptoms: None Fall Associated With With Symptoms: No Severity: Mild Recent travel outside of the [place]: No - Symptoms Of CVA Associated Symptoms: denies: Impaired Speech, Seizure Activity, New Vision Deficit(Left), New Vision Deficit(Right), Decreased Ability To Walk, New Confusion Past Medical History Reviewed: Historical Data, Nursing Documentation, Vital Signs Vital Signs: Last Vital Signs Temp 98.7 F 05/19/18 22:14 Pulse 77 05/19/18 22:14 Resp 18 05/19/18 22:14 BP 170/65 H 05/19/18 22:14 Pulse Ox 98 05/19/18 22:14 - Medical History PMH: Arthritis, Depression, HTN, Hypercholesterolemia Surgical History: Appendectomy, Endoscopy Family History: States: No Known Family Hx - Social History Hx Alcohol Use: Yes Hx Substance Use: No - Immunization History Hx Tetanus Toxoid Vaccination: No Hx Influenza Vaccination: No Hx Pneumococcal Vaccination: No Review Of Systems Constitutional: Positive for: Weakness, Other (Decreased appetite, Decrease PO intake) Cardiovascular: Negative for: Chest Pain, Palpitations Respiratory: Negative for: Cough, Shortness of Breath Gastrointestinal: Positive for: Nausea, Other ("Gurgling"). Negative for: Vomiting, Abdominal Pain, Diarrhea Genitourinary: Negative for: Dysuria, Hematuria, Vaginal Discharge, Vaginal Bleeding Skin: Negative for: Rash Physical Exam - Physical Exam Appears: Well, Non-toxic, No Acute Distress Skin: Normal Color, Warm, Dry, No Rash Head: Normacephalic Eye(s): bilateral: Normal Inspection Oral Mucosa: Moist Cardiovascular: Rhythm Regular Respiratory: Normal Breath Sounds, No Rales, No Rhonchi, No Wheezing Gastrointestinal/Abdominal: Bowel Sounds, Soft, Tenderness (Mild epigastric TTP , (-) Macedo's), No Guarding, No Rebound, Other (obese) Back: No CVA Tenderness Neurological/Psych: Oriented x3 ED Course And Treatment - Laboratory Results Result Diagrams: 05/19/18 20:08 05/19/18 20:08 ECG: Interpreted By Me, Viewed By Me (NSR 74 bpm, left axis deviation, no acute ST changes) ECG Interpretation: No Acute Changes O2 Sat by Pulse Oximetry: 98 (Room air) Pulse Ox Interpretation: Normal - Other Rad obstructive series X-Ray: Interpreted by Me, Viewed By Me (no air fluid levels, (+) constipation) Progress Note: Blood work, EKG, urinalysis, and obstructive series ordered and reviewed. Patient given IV NS bolus, IV protonix. Reevaluation Time: :45 Reassessment Condition: Improved (On reassessment, patient is resting comfortably and states she feels better. Blood work was unremarkrable, UA (+) for UTI. Patient given Rxs for Ciprofloxacin and Colace. She was instructed to follow up with PMD/clinic in 1-2 days, and understands she should return to ED if symptoms worsen.) Disposition Counseled Patient/Family Regarding: Studies Performed, Diagnosis, Need For Followup, Rx Given - Disposition Referrals: Sam Grubbs MD [Medical Doctor] - Disposition: HOME/ ROUTINE Disposition Time: 09:45 Condition: STABLE Additional Instructions: FOLLOW UP WITH YOUR DOCTOR IN 1-2 DAYS USE MEDICATIONS DIRECTED DRINK PLENTY OF WATER, AND INCREASE FIBER IN YOUR DIET RETURN TO EMERGENCY ROOM IF SYMPTOMS WORSEN SEGUIMIENTO CON DEXTER MDICO EN 1-2 GARCIA USE MEDICAMENTOS SEGN LO INDICADO SALEEM ABUNDANTE AGUA Y AUMENTA LA FIBRA EN TU DIETA REGRESE AL LUC DE EMERGENCIA SI LOS SNTOMAS EMPEORAN Prescriptions: Ciprofloxacin [Cipro] 1 tab PO BID #14 tab Docusate [Colace] 100 mg PO DAILY #30 cap Instructions: High Fiber Diet, Constipation, Adult (DC), Urinary Tract Infection, Adult (DC) Forms: [employer] (Polish) Print Language: ROMANIAN - Clinical Impression Clinical Impression: UTI (urinary tract infection), Constipation - Scribe Statement The provider has reviewed the documentation as recorded by the Nuryibjoel Wright All medical record entries made by the Ray were at my direction and personally dictated by me. I have reviewed the chart and agree that the record accurately reflects my personal performance of the history, physical exam, medical decision making, and the department course for this patient. I have also personally directed, reviewed, and agree with the discharge instructions and disposition.
[2018-05-19 20:14] LABS: BASO # 0.1 K/uL (0.0-0.2); BASO % 0.8 % (0.0-2.0); EOS # 0.2 K/uL (0.0-0.7); EOS % 2.6 % (0.0-4.0); HEMOGLOBIN 11.8 g/dL (11.0-16.0); LYMPH # 2.1 K/uL (1.0-4.3); LYMPH % 25.2 % (20.0-40.0); MEAN CELL VOLUME 77.1 fL (81.0-99.0); MEAN CORPUSCULAR HEMOGLOBIN 25.9 pg (27.0-31.0); MEAN CORPUSCULAR HGB CONC 33.6 g/dL (33.0-37.0); MEAN PLATELET VOLUME 8.1 fL (7.2-11.7); MONO # 0.6 K/uL (0.0-0.8); NEUT # 5.4 K/uL (1.8-7.0); NEUT % 64.4 % (50.0-75.0); RBC 4.57 Mil/uL (3.80-5.20); RED CELL DISTRIBUTION WIDTH 17.2 % (11.5-14.5); WHITE BLOOD COUNT 8.4 K/uL (4.8-10.8)
[2018-05-19 20:27] LABS: ALB/GLOB RATIO 1.5 (1.0-2.1); ALBUMIN 4.5 g/dL (3.5-5.0); ALT/SGPT 39 U/L (9-52); AST/SGOT 30 U/L (14-36); BLOOD UREA NITROGEN 12 mg/dL (7-17); CALCIUM 9.6 mg/dl (8.6-10.4); GFR NON-AFRICAN AMERICAN > 60
[2018-05-19] MEDS ORDERED: Sodium Chloride 0.9% 1,000 ML ONE (20:36)
[2018-05-19 21:22] LABS: URINE BACTERIA OCC (<OCC); URINE BILIRUBIN NEGATIVE (NEGATIVE); URINE BLOOD NEGATIVE (NEGATIVE); URINE CLARITY Clear (Clear); URINE COLOR Straw (YELLOW); URINE GLUCOSE (UA) NORMAL (Normal); URINE LEUKOCYTE ESTERASE 3+ Leu/uL (Negative); URINE PROTEIN NEGATIVE (NEGATIVE); URINE UROBILINOGEN NORMAL mg/dL (0.2-1.0)
[2018-05-19 22:17] VITALS: BP 170/65; PULSE 77; TEMP 98.7
--- NOTE | 2018-05-20 10:14 | RAD ---
Date of service: 05/19/2018 PROCEDURE: Radiographs of the chest and abdomen (obstructive series) HISTORY: nausea, constipation COMPARISON: No prior. TECHNIQUE: AP radiograph of the chest, with upright and supine radiographs of the abdomen. FINDINGS: CHEST: Lungs: Mild bibasilar atelectasis. Cardiovascular: Heart is mildly enlarged. No pulmonary vascular congestion. Pleura: No pleural fluid. No pneumothorax. Other findings: None. ABDOMEN AND PELVIS: Bowel: There appears to be a any relatively large amount of stool throughout the cecum and ascending as well as to a lesser degree transverse colon suggesting mild fecal retention/ constipation. No evidence of acute mechanical bowel obstruction. Free air: No gross free intraperitoneal air. Bones: Unremarkable. Other findings: None. IMPRESSION: Mild bibasilar atelectasis. Cardiomegaly. Findings consistent with constipation
--- NOTE | 2018-05-22 16:21 | CARD ---
APPROVED REPORT Date of service: 05/19/2018 EKG Measurement Heart [id number] <Conclusion> Normal sinus rhythm Nonspecific T wave abnormality Abnormal ECG
== END 2018-05-19 22:16 | disposition home or self-care (01) ==
LOC: C.ER 17:49
DX: N39.0 Urinary tract infection, site not specified (principal); K59.00 Constipation, unspecified; I10 Essential (primary) hypertension; E78.00 Pure hypercholesterolemia, unspecified
CPT/HCPCS: 74022; 80053; 81001; 85025; 87086; 87181; 93005; 96374; 99285; C9113; J7040

== ENCOUNTER 2019-01-13 08:22 | Outpatient (CLI) | payer MEDICARE, MEDICAID | END 2019-01-13 08:23 | disposition home or self-care (01) | LOC: C.LAB 08:22 | DX: E87.1 Hypo-osmolality and hyponatremia (principal) ==

== ENCOUNTER 2019-01-13 08:27 | Outpatient (CLI) | payer MEDICARE, MEDICAID | END 2019-01-13 08:28 | disposition home or self-care (01) | LOC: C.RADH 08:27 ==

== ENCOUNTER 2019-01-22 21:08 | Emergency (ER) | payer MEDICARE, MEDICAID ==
--- NOTE | 2019-01-22 21:30 | C.PDOC ---
History Of Present Illness 83 year old female presents to the ER complaining of high blood pressure. Denies pain, SOB, lightheadedness, or focal deficits. Blood pressure in the ER was 200 systolic. Chief Complaint (Nursing): High Blood Pressure History Per: Patient History/Exam Limitations: no limitations Onset/Duration Of Symptoms: Days Current Symptoms Are (Timing): Still Present Quality Of Symptoms: Asymptomatic Recent travel outside of the [place]: No Past Medical History Reviewed: Historical Data, Nursing Documentation, Vital Signs Vital Signs: Last Vital Signs Temp 97.9 F 01/22/19 21:12 Pulse 66 01/22/19 21:12 Resp 20 01/22/19 21:12 BP 145/40 L 01/22/19 21:25 Pulse Ox 97 01/22/19 21:12 Primary Care Provider: Sam Grubbs - Medical History PMH: Arthritis, Depression, HTN, Hypercholesterolemia Denies: Chronic Kidney Disease Surgical History: Appendectomy, Endoscopy Family History: States: Unknown Family Hx - Social History Hx Alcohol Use: Yes Hx Substance Use: No - Immunization History Hx Tetanus Toxoid Vaccination: No Hx Influenza Vaccination: Yes Hx Pneumococcal Vaccination: Yes Review Of Systems Constitutional: Negative for: Fever, Chills Cardiovascular: Negative for: Chest Pain, Palpitations Respiratory: Negative for: Cough, Shortness of Breath Gastrointestinal: Negative for: Nausea, Vomiting Neurological: Negative for: Weakness, Numbness Physical Exam - Physical Exam Appears: Non-toxic Skin: Normal Color, Warm Head: Atraumatic, Normacephalic Oral Mucosa: Moist Neck: Normal, Supple Chest: Symmetrical, No Tenderness Cardiovascular: Rhythm Regular, Other (124/73 blood pressure) Respiratory: Normal Breath Sounds, No Rales, No Rhonchi, No Wheezing Gastrointestinal/Abdominal: Soft, No Tenderness Neurological/Psych: Oriented x3, Normal Speech ED Course And Treatment O2 Sat by Pulse Oximetry: 97 (room air) Pulse Ox Interpretation: Normal Disposition Counseled Patient/Family Regarding: Diagnosis - Disposition Referrals: Sam Grubbs MD [Medical Doctor] - [facility] at [facility] [Outside] Disposition: HOME/ ROUTINE Disposition Time: 22:24 Condition: STABLE Additional Instructions: CONTINUE BP MEDS. Instructions: Low Salt Diet, Medicines for High Blood Pressure, High Blood Pressure Emergencies Forms: [employer] (Maltese) Print Language: LITHUANIAN - POA Present On Arrival: None - Clinical Impression Clinical Impression: Abnormal blood pressure, Hypertension - Scribe Statement The provider has reviewed the documentation as recorded by the Scribe Bert Wright All medical record entries made by the Nuryibjoel were at my direction and personally dictated by me. I have reviewed the chart and agree that the record accurately reflects my personal performance of the history, physical exam, medical decision making, and the department course for this patient. I have also personally directed, reviewed, and agree with the discharge instructions and disposition.
[2019-01-22 22:44] VITALS: BP 127/64; PULSE 61; RESP 20; TEMP 98; O2SAT 96
== END 2019-01-22 22:48 | disposition home or self-care (01) ==
LOC: C.ER 21:08
DX: I10 Essential (primary) hypertension (principal)

== ENCOUNTER 2019-01-24 16:46 | Emergency (ER) | payer MEDICARE, MEDICAID ==
[2019-01-24 16:59] VITALS: BMI 24.4
[2019-01-24 17:04] VITALS: TEMP 98.5
[2019-01-24 18:05] LABS: BASO % 0.5 % (0.0-2.0); EOS # 0.1 K/uL (0.0-0.7); EOS % 1.6 % (0.0-4.0); HEMOGLOBIN 10.3 g/dL (11.0-16.0); LYMPH # 1.8 K/uL (1.0-4.3); LYMPH % 19.8 % (20.0-40.0); MEAN CELL VOLUME 76.9 fL (81.0-99.0); MEAN CORPUSCULAR HEMOGLOBIN 25.6 pg (27.0-31.0); MEAN CORPUSCULAR HGB CONC 33.3 g/dL (33.0-37.0); MEAN PLATELET VOLUME 8.2 fL (7.2-11.7); MONO # 0.8 K/uL (0.0-0.8); NEUT # 6.1 K/uL (1.8-7.0); NEUT % 69.1 % (50.0-75.0); RBC 4.03 Mil/uL (3.80-5.20); RED CELL DISTRIBUTION WIDTH 14.1 % (11.5-14.5); WHITE BLOOD COUNT 8.9 K/uL (4.8-10.8)
[2019-01-24 18:15] LABS: PARTIAL THROMBOPLASTIN TIME 31.9 SECONDS (21-34); PROTHROMBIN TIME 11.4 SECONDS (9.7-12.2)
[2019-01-24 18:20] LABS: ALB/GLOB RATIO 1.6 (1.0-2.1); ALT/SGPT 30 U/L (9-52); AST/SGOT 30 U/L (14-36); BLOOD UREA NITROGEN 9 mg/dL (7-17); CALCIUM 9.1 mg/dl (8.6-10.4); GFR NON-AFRICAN AMERICAN > 60
--- NOTE | 2019-01-24 18:43 | C.PDOC ---
History Of Present Illness 83 y/o female, with history of hypertension, comes in for reported high blood pressure with 200 systolic at home. Patient was seen 2 days ago for same and was discharged home. Patient has no new complaints. Time Seen by Provider: 01/24/19 17:06 Chief Complaint (Nursing): High Blood Pressure History Per: Patient History/Exam Limitations: no limitations Onset/Duration Of Symptoms: Hrs Current Symptoms Are (Timing): Still Present Past Medical History Reviewed: Historical Data, Nursing Documentation, Vital Signs Vital Signs: Last Vital Signs Temp 98.5 F 01/24/19 16:59 Pulse 62 01/24/19 16:59 Resp 18 01/24/19 16:59 BP 207/64 H 01/24/19 16:59 Pulse Ox 100 01/24/19 16:59 Primary Care Provider: Sam Grubbs Medical History PMH: Arthritis, Depression, HTN, Hypercholesterolemia Denies: Chronic Kidney Disease Surgical History: Appendectomy, Endoscopy Family History: States: No Known Family Hx - Social History Hx Alcohol Use: No Hx Substance Use: No - Immunization History Hx Tetanus Toxoid Vaccination: No Hx Influenza Vaccination: Yes Hx Pneumococcal Vaccination: Yes Review Of Systems Except As Marked, All Systems Reviewed And Found Negative. Constitutional: Negative for: Fever, Chills Cardiovascular: Negative for: Chest Pain, Palpitations Respiratory: Negative for: Shortness of Breath Gastrointestinal: Negative for: Nausea, Vomiting Neurological: Negative for: Dizziness Physical Exam - Physical Exam Appears: Non-toxic, No Acute Distress Skin: Warm, Dry Head: Normacephalic Eye(s): bilateral: Normal Inspection Oral Mucosa: Moist Neck: Supple Cardiovascular: Rhythm Regular, No Murmur Respiratory: Normal Breath Sounds, No Rales, No Rhonchi, No Wheezing Gastrointestinal/Abdominal: Soft, No Tenderness Extremity: Bilateral: Atraumatic, Normal Color And Temperature, Normal ROM Neurological/Psych: Oriented x3, Normal Speech, Normal Cognition ED Course And Treatment - Laboratory Results Result Diagrams: 01/24/19 17:49 01/24/19 17:49 Lab Results: PT 11.4 SECONDS (9.7-12.2) 01/24/19 17:49 INR 1.0 01/24/19 17:49 APTT 31.9 SECONDS (21-34) 01/24/19 17:49 Troponin I < 0.0120 ng/mL (0.00-0.120) 01/24/19 17:49 Total Bilirubin 0.2 mg/dL (0.2-1.3) 01/24/19 17:49 AST 30 U/L (14-36) 01/24/19 17:49 ALT 30 U/L (9-52) 01/24/19 17:49 Alkaline Phosphatase 59 U/L (38-126) 01/24/19 17:49 Total Protein 6.5 g/dL (6.3-8.3) 01/24/19 17:49 Albumin 4.0 g/dL (3.5-5.0) 01/24/19 17:49 Globulin 2.6 gm/dL (2.2-3.9) 01/24/19 17:49 Albumin/Globulin Ratio 1.6 (1.0-2.1) 01/24/19 17:49 O2 Sat by Pulse Oximetry: 100 (RA) Pulse Ox Interpretation: Normal Medical Decision Making Medical Decision Making: Plan: --EKG --Labs suspect essential htn. ro urgency vs emergnecy pt in nad neuro intact no ford labs neg. in er in nad.b/p imrpvod. advise outpt fu. Disposition - Disposition Disposition: HOME/ ROUTINE Disposition Time: 19:00 Condition: STABLE Additional Instructions: return to er with worsening. Instructions: High Blood Pressure in Adults Forms: [facility] (Andorran) - Clinical Impression Clinical Impression: Hypertension - Scribe Statement The provider has reviewed the documentation as recorded by the Ray Covington Provider Attestation: All medical record entries made by the Ray were at my direction and personally dictated by me. I have reviewed the chart and agree that the record accurately reflects my personal performance of the history, physical exam, medical decision making, and the department course for this patient. I have also personally directed, reviewed, and agree with the discharge instructions and disposition.
[2019-01-24 18:58] VITALS: PULSE 60; RESP 16
[2019-01-24 19:44] VITALS: BP 180/54
[2019-01-24 22:15] VITALS: O2SAT 100
--- NOTE | 2019-01-27 13:16 | CARD ---
APPROVED REPORT Date of service: 01/24/2019 EKG Measurement Heart [id number] <Conclusion> Sinus bradycardia Cannot rule out Anterior infarct, age undetermined Abnormal ECG
== END 2019-01-24 19:44 | disposition home or self-care (01) ==
LOC: C.ER 16:46
DX: I10 Essential (primary) hypertension (principal)